=== PATIENT | male | born 1960 | race Caucasian/White ===

== ENCOUNTER → 2016-06-28 | Outpatient (CLI) | payer OTHER ==
[2016-06-28 12:59] VITALS: BP 123/70; PULSE 65; RESP 18; TEMP 98.1
--- NOTE | 2016-06-29 06:21 | P.PN ---
Subjective This is follow-up visit for this patient with a history of severe and chronic low back pain , being diagnosed with lumbar radiculopathy, lumbar herniated disc disease, and lumbar foraminal stenosis, he is not candidate for interventional pain management injection, because he had pulmonary embolism, and is currently on blood thinner ELIQUES , he denies any fever or night sweats. Denies any change in bowel movement or urination, and is currently on pain medications 1-MS Contin 15 mg every 12 hours 2- Neurontin 400 mg 3 times a day Patient denies any side effects of the medication, denies excessive drowsiness or sleepiness, denies suicidal ideation, and reports that the current pain medication is NOT helping To control the pain and improve activity of daily living Physical Examinations : 1-Constitutiona : Cooperative , not in acute distress . 2-HEENT : nech ; supple , no Lymphadenopathy , no Thyromegaly , normal thyroid size . eyes : no ptosis , no icterus, no photophobia . ENT : normal of hearing , normal oropharynx , no Thrush . 3- Respiratory : Chest clear to auscultations Bilaterally , no wheezing , no Rhonchi . 4- Cardiovascular : regular rate and rhythem , S1 , S2 , no S3 , no S4. 5- Gastrointestinal : abdomen soft no tenderness , bowel sounds positive all four quadrents , no organomegally . 6- Genitourinary : Defferred . 7- neurologic : Cranial nerve II to XII intact , no focal neurological deffecit . 8-psychatric : alert , oriented X 3 , appropriate affect , intact judgment and insight . 9-Lymphatic : no Lymphadenopathy . 10- musculoskeltal : exams of the cervical spine = motor strength normal bilateral upper extremities facet loading test cervical area positive. exams of the Lumber spine = motor strength lower extremities ,thigh and legs .5/5 deep tendon reflexes : normal Knee Jerk , normal ankle Jerk . lumber facet Loading Test positive strait leg raising test positive at 30 degree , RT ,LT , Fabere test positive RT and positive LT . Range of motion: Range of motion in flexion of the lumbar spine 60 degrees Range of motion range of motion of extension of the lumbar spine 10 Assessment and plan = Lumbar radiculopathy/lumbar herniated disc disease/lumbar foraminal stenosis Patient is not candidate for pain management interventions as his currently on blood thinner ((ELEQUES) - chronic and current use of high-risk medication (Opioids). The patient was counseled about risk of opioid use, psychological risk associated with opioids and was orally counseled to not overuse , divert,or sell dictations to take medications as prescribed only , and to restore medication in safe location , and the patient counseled against driving while using narcotic medications, and also not to use alcohol or any illicit recreational drugs, the patient's verbalized understanding that the lack of compliance will result in failure to renew narcotic prescription and possible discharge from the clinic - diagnoses, prognosis, and treatment options including but not limited to physical therapy, surgical interventions, interventional therapies , and medication management including narcotics and adjuvant medication were discussed with the patient and all The questions answered -medication management =1-increase his MS Contin to 15 mg every 8 hours (patient reported that his pain increased significantly in the middle of the day) 2-continue Neurontin 400 mg 3 times a day , and he will follow up with the pain clinic in 2 months -procedure= in the future we can consider lumbar epidural steroid injection versus transforaminal epidural steroid injection, 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
== END ==
LOC: PNWHC3 12:32
PROVIDERS: ATTEND Specialist
DX: M54.16 Radiculopathy, lumbar region (principal); M51.26 Other intervertebral disc displacement, lumbar region; M48.06 Spinal stenosis, lumbar region; Z86.711 Personal history of pulmonary embolism; Z79.01 Long term (current) use of anticoagulants; Z79.891 Long term (current) use of opiate analgesic
CPT/HCPCS: 99211

== ENCOUNTER 2016-08-12 11:07 | Inpatient (IN) | payer OTHER ==
[2016-08-12] MEDS ORDERED: MORPHINE SULFATE 4 MG/ML SYRINGE IV STA (11:56)
[2016-08-12] MEDS ORDERED: KETOROLAC 30 MG/ML 1 ML VIAL IVP STA (11:56)
[2016-08-12] MEDS ORDERED: SODIUM CHLORIDE 0.9% 1,000 ML IV STA ×2 (11:56)
--- NOTE | 2016-08-12 12:34 | ED ---
General Adult HPI - General Chief complaint: Chest Pain Stated complaint: CHEST PAIN, HX PE Time Seen by Provider: 08/12/16 11:44 Source: patient, RN notes reviewed, old records reviewed Mode of arrival: wheelchair Limitations: no limitations - History of Present Illness Initial comments: This is a 56-year-old male to the ER for reevaluation chest pain. Patient does have significant recent history of back pain and chronic history of back pain as well as recent history of bilateral PE diagnosis secondary to travel history and decreased ambulation. At this point patient states he has anterior chest pain worse when he takes a real deep breath a little epigastric pain and mild nausea no vomiting. Known but no diarrhea. No fevers. Patient states the pain feels different than the pain maneuvers a diagnosed PE - Related Data Home Medications Medication Instructions Recorded Confirmed Apixaban [Eliquis] 5 mg PO BID 04/18/16 08/12/16 Ascorbic Acid [Vitamin C] 1,000 mg PO DAILY 04/18/16 08/12/16 Multivitamin [Men's Multi-Vitamin] 1 tab PO DAILY 05/03/16 08/12/16 L.acidoph,Paracasei, B.lactis 1 cap PO DAILY 06/28/16 08/12/16 [Probiotic] Docusate [Colace] 100 mg PO BID 08/12/16 08/12/16 Morphine Sulfate ER [Ms Contin] 15 mg PO TID 08/12/16 08/12/16 Previous Rx's Medication Instructions Recorded Gabapentin [Neurontin] 400 mg PO TID #90 cap 06/28/16 Allergies Allergy/AdvReac Type Severity Reaction Status Date / Time No Known Allergies Allergy Verified 08/12/16 12:18 Review of Systems ROS Statement: Those systems with pertinent positive or pertinent negative responses have been documented in the HPI. ROS Other: All systems not noted in ROS Statement are negative. Past Medical History Past Medical History: Hearing Disorder / Deafness, Hyperlipidemia, Osteoarthritis (OA), Pulmonary Embolus (PE) History of Any Multi-Drug Resistant Organisms: None Reported Past Surgical History: Adenoidectomy, Appendectomy, Hernia Repair, Orthopedic Surgery, Tonsillectomy Additional Past Surgical History / Comment(s): Rt ruptured bicept tendon repair Past Anesthesia/Blood Transfusion Reactions: No Reported Reaction Past Psychological History: No Psychological Hx Reported Smoking Status: Never smoker Past Alcohol Use History: None Reported Past Drug Use History: None Reported - Past Family History Mother Family Medical History: Cancer Additional Family Medical History / Comment(s): ovarian ca, neuro nemanoma, mastectomy Father Family Medical History: Coronary Artery Disease (CAD), Myocardial Infarction ([place] ) General Exam Limitations: no limitations General appearance: alert, in no apparent distress Head exam: Present: atraumatic, normocephalic, normal inspection Eye exam: Present: normal appearance, PERRL, EOMI. Absent: scleral icterus, conjunctival injection, periorbital swelling ENT exam: Present: normal exam, mucous membranes moist Neck exam: Present: normal inspection. Absent: tenderness, meningismus, lymphadenopathy Respiratory exam: Present: normal lung sounds bilaterally. Absent: respiratory distress, wheezes, rales, rhonchi, stridor Cardiovascular Exam: Present: regular rate, normal rhythm, normal heart sounds. Absent: systolic murmur, diastolic murmur, rubs, gallop, clicks GI/Abdominal exam: Present: soft, normal bowel sounds. Absent: distended, tenderness, guarding, rebound, rigid Extremities exam: Present: normal inspection, full ROM, normal capillary refill. Absent: tenderness, pedal edema, joint swelling, calf tenderness Back exam: Present: normal inspection Neurological exam: Present: alert, oriented X3, CN II-XII intact Psychiatric exam: Present: normal affect, normal mood Skin exam: Present: warm, dry, intact, normal color. Absent: rash Course Vital Signs 08/12/16 08/12/16 11:27 13:16 Temperature 97.4 F L Pulse Rate 71 66 Respiratory 16 18 Rate Blood Pressure 130/90 131/83 O2 Sat by Pulse 98 99 Oximetry - Reevaluation(s) Reevaluation #1: 08/12/16 14:26 Patient's chest pain at this time is improved EKG Findings - EKG Comments: EKG Findings:: EKG shows sinus bradycardia rate 56, OH 154, QRS 90, QTC 422 Medical Decision Making - Medical Decision Making 36 meowed ER for reevaluation chest pain. Patient has anterior chest pain related to pancreatitis, history of recent PEs. Patient on anticoagulation, will admit patient for pain control IV fluid and nothing by mouth diet - Lab Data Result diagrams: 08/12/16 12:25 08/12/16 12:25 Lab Results 08/12/16 08/12/16 08/12/16 Range/Units 12:25 12:25 12:25 WBC 4.7 (3.8-10.6) k/uL RBC 5.10 (4.30-5.90) m/uL Hgb 14.7 (13.0-17.5) gm/dL Hct 46.1 (39.0-53.0) % MCV 90.2 (80.0-100.0) fL MCH 28.7 (25.0-35.0) pg MCHC 31.8 (31.0-37.0) g/dL RDW 12.3 (11.5-15.5) % Plt Count 256 (150-450) k/uL Neutrophils % 49 % Lymphocytes % 36 % Monocytes % 7 % Eosinophils % 4 % Basophils % 1 % Neutrophils # 2.3 (1.3-7.7) k/uL Lymphocytes # 1.7 (1.0-4.8) k/uL Monocytes # 0.3 (0-1.0) k/uL Eosinophils # 0.2 (0-0.7) k/uL Basophils # 0.0 (0-0.2) k/uL PT (9.0-12.0) sec INR (<1.1) APTT (22.0-30.0) sec D-Dimer (<0.60) mg/L FEU Sodium 145 (137-145) mmol/L Potassium 4.1 (3.5-5.1) mmol/L Chloride 106 (98-107) mmol/L Carbon Dioxide 27 (22-30) mmol/L Anion Gap 12 mmol/L BUN 12 (9-20) mg/dL Creatinine 0.82 (0.66-1.25) mg/dL Est GFR (MDRD) Af Amer >60 (>60 ml/min/1.73 sqM) Est GFR (MDRD) Non-Af >60 (>60 ml/min/1.73 sqM) Glucose 109 H (74-99) mg/dL Calcium 9.8 (8.4-10.2) mg/dL Magnesium 2.1 (1.6-2.3) mg/dL Total Bilirubin 0.6 (0.2-1.3) mg/dL AST 29 (17-59) U/L ALT 32 (21-72) U/L Alkaline Phosphatase 60 (38-126) U/L Total Creatine Kinase 102 (55-170) U/L CK-MB (CK-2) 1.4 (0.0-2.4) ng/mL CK-MB (CK-2) Rel Index 1.4 Troponin I <0.012 (0.000-0.034) ng/mL NT-Pro-B Natriuret Pep pg/mL Total Protein 7.7 (6.3-8.2) g/dL Albumin 4.7 (3.5-5.0) g/dL Lipase 1104 H (23-300) U/L 08/12/16 08/12/16 Range/Units 12:25 12:25 WBC (3.8-10.6) k/uL RBC (4.30-5.90) m/uL Hgb (13.0-17.5) gm/dL Hct (39.0-53.0) % MCV (80.0-100.0) fL MCH (25.0-35.0) pg MCHC (31.0-37.0) g/dL RDW (11.5-15.5) % Plt Count (150-450) k/uL Neutrophils % % Lymphocytes % % Monocytes % % Eosinophils % % Basophils % % Neutrophils # (1.3-7.7) k/uL Lymphocytes # (1.0-4.8) k/uL Monocytes # (0-1.0) k/uL Eosinophils # (0-0.7) k/uL Basophils # (0-0.2) k/uL PT 10.6 (9.0-12.0) sec INR 1.0 (<1.1) APTT 25.0 (22.0-30.0) sec D-Dimer 0.42 (<0.60) mg/L FEU Sodium (137-145) mmol/L Potassium (3.5-5.1) mmol/L Chloride (98-107) mmol/L Carbon Dioxide (22-30) mmol/L Anion Gap mmol/L BUN (9-20) mg/dL Creatinine (0.66-1.25) mg/dL Est GFR (MDRD) Af Amer (>60 ml/min/1.73 sqM) Est GFR (MDRD) Non-Af (>60 ml/min/1.73 sqM) Glucose (74-99) mg/dL Calcium (8.4-10.2) mg/dL Magnesium (1.6-2.3) mg/dL Total Bilirubin (0.2-1.3) mg/dL AST (17-59) U/L ALT (21-72) U/L Alkaline Phosphatase (38-126) U/L Total Creatine Kinase (55-170) U/L CK-MB (CK-2) (0.0-2.4) ng/mL CK-MB (CK-2) Rel Index Troponin I (0.000-0.034) ng/mL NT-Pro-B Natriuret Pep 60 pg/mL Total Protein (6.3-8.2) g/dL Albumin (3.5-5.0) g/dL Lipase (23-300) U/L - Radiology Data Radiology results: report reviewed (CK chest is no change from prior), image reviewed Disposition Clinical Impression: Chest pain, Acute pancreatitis Disposition: ADMITTED IP TO THIS HOSP Condition: Fair Referrals: Tres Haynes MD [Primary Care Provider] - 1-2 days
[2016-08-12 12:40] LABS: Basophils % (A) 1 %; CH 28.6; CHCM 31.8; Eosinophils # (A) 0.2 k/uL (0-0.7); Eosinophils % (A) 4 %; HCT 46.1 % (39.0-53.0); HGB 14.7 gm/dL (13.0-17.5); Luc # (Auto) 0.15; Luc % (Auto) 3; Lymphocytes # (A) 1.7 k/uL (1.0-4.8); Lymphocytes % (A) 36 %; MCH 28.7 pg (25.0-35.0); MCHC 31.8 g/dL (31.0-37.0); MCV 90.2 fL (80.0-100.0); Mean Platelet Volume 7.1; Monocytes # (A) 0.3 k/uL (0-1.0); Monocytes % (A) 7 %; Neutrophils # (A) 2.3 k/uL (1.3-7.7); Neutrophils % (A) 49 %; RDW 12.3 % (11.5-15.5); WBC 4.7 k/uL (3.8-10.6); WBC (Perox) 4.65
[2016-08-12 13:00] LABS: ALT 32 U/L (21-72); AST 29 U/L (17-59); Alkaline Phosphatase 60 U/L (38-126); Anion Gap 12 mmol/L; Blood Urea Nitrogen 12 mg/dL (9-20); Calcium 9.8 mg/dL (8.4-10.2); Carbon Dioxide 27 mmol/L (22-30); Chloride 106 mmol/L (98-107); Glucose 109 mg/dL (74-99); Magnesium 2.1 mg/dL (1.6-2.3); Non-African American GFR(MDRD) >60 (>60 ml/min/1.73 sqM); Potassium 4.1 mmol/L (3.5-5.1); Sodium 145 mmol/L (137-145); Total Bilirubin 0.6 mg/dL (0.2-1.3); Total Protein 7.7 g/dL (6.3-8.2)
[2016-08-12 13:04] LABS: Creatine Kinase 102 U/L (55-170)
[2016-08-12] MEDS ORDERED: RX INFO: IV CONTRAST WAS GIVEN 1 EACH MISC MISCELLANE PRN (13:04)
[2016-08-12 13:14] LABS: Prothrombin Time 10.6 sec (9.0-12.0)
[2016-08-12 13:15] LABS: Creatine Kinase MB 1.4 ng/mL (0.0-2.4); Troponin I <0.012 ng/mL (0.000-0.034)
--- NOTE | 2016-08-12 14:13 | CT ---
EXAMINATION TYPE: CT angio chest DATE OF EXAM: 08/12/2016 2:05 PM COMPARISON: NONE HISTORY: Chest pain with a history of PE in March of 2014 CT DLP: 674 mGycm Automated exposure control for dose reduction was used. CONTRAST: CTA scan of the thorax is performed with IV Contrast, patient injected with 100 ml mL of Omnipaque 35 0, pulmonary embolism protocol. . FINDINGS there is dependent atelectasis within the lungs. The lungs are otherwise clear. There is no significant axillary, mediastinal or hilar adenopathy. There is no evidence of an embolus. The aorta is normal in caliber without evidence of dissection. Th e heart is not enlarged. There is no pleural or pericardial fluid. Visualized portions of the upper abdomen are normal. There is mild hypertrophic spondylosis within the spine. IMPRESSION: 1. THIS EXAMINATION IS NEGATIVE FOR PULMONARY EMBOLUS. 2. MINIMAL DEGENERATIVE CHANGE WITHIN THE SPINE.
[2016-08-12] MEDS ORDERED: ONDANSETRON 4 MG/2 ML VIAL IVP STA (14:18)
[2016-08-12] MEDS ORDERED: PANTOPRAZOLE 40 MG/10 ML VIAL IVP STA (14:18)
--- NOTE | 2016-08-12 16:22 | US ---
EXAMINATION TYPE: US gallbladder DATE OF EXAM: 08/12/2016 3:58 PM COMPARISON: NONE CLINICAL HISTORY: Pain. Chest pain x 1 week. Possible pancreatitis EXAM MEASUREMENTS: Liver Length: 16.6 cm Gallbladder Wall: 0.4 cm CBD: 0.3 cm Right Kidney: 11.0 x 6.5 x 5.1 cm Pancreas: obscured by overlying bowel content Liver: appears wnl Gallbladder: no evidence of stones, GB wall upper limits of normal Evidence for sonographic Zapata's sign: no CBD: wnl Right Kidney: cystic area mid = 1.3 x 1.4 x 1.2cm The cystic lesion in the mid polar region of the right kidney does not meet the requirements of a sim ple cyst. IMPRESSION: CYSTIC LESION WITHIN THE RIGHT KIDNEY DOES NOT MEET THE REQUIREMENTS OF A SIMPLE CYST. FURTHER INVEST IGATION WITH CT OR MR WOULD BE SUGGESTED.
[2016-08-12] MEDS: MORPHINE SULFATE 4 MG/ML SYRINGE IV PRN ×2 (18:16→23:39)
[2016-08-12] MEDS: DOCUSATE 100 MG CAP PO SCH (20:29)
[2016-08-12] MEDS: APIXABAN 5 MG TAB PO SCH (20:29)
[2016-08-13] MEDS: APIXABAN 5 MG TAB PO SCH (08:16)
[2016-08-13] MEDS: MORPHINE SULFATE 4 MG/ML SYRINGE IV PRN ×2 (08:16→13:47)
[2016-08-13] MEDS: DOCUSATE 100 MG CAP PO SCH (08:16)
[2016-08-13 08:37] LABS: Basophils % (A) 1 %; CH 28.9; Eosinophils # (A) 0.2 k/uL (0-0.7); Eosinophils % (A) 5 %; HCT 39.3 % (39.0-53.0); HDW 2.22; HGB 12.5 gm/dL (13.0-17.5); Luc # (Auto) 0.11; Luc % (Auto) 3; Lymphocytes # (A) 1.5 k/uL (1.0-4.8); Lymphocytes % (A) 35 %; MCH 28.9 pg (25.0-35.0); MCHC 31.9 g/dL (31.0-37.0); MCV 90.4 fL (80.0-100.0); Mean Platelet Volume 7.9; Monocytes # (A) 0.3 k/uL (0-1.0); Monocytes % (A) 7 %; Neutrophils # (A) 2.1 k/uL (1.3-7.7); Neutrophils % (A) 50 %; RBC 4.35 m/uL (4.30-5.90); RDW 12.5 % (11.5-15.5); WBC 4.3 k/uL (3.8-10.6); WBC (Perox) 4.86
[2016-08-13 08:46] LABS: Anion Gap 6 mmol/L; Blood Urea Nitrogen 11 mg/dL (9-20); Carbon Dioxide 25 mmol/L (22-30); Chloride 110 mmol/L (98-107); Glucose 87 mg/dL (74-99); Non-African American GFR(MDRD) >60 (>60 ml/min/1.73 sqM); Potassium 4.1 mmol/L (3.5-5.1); Sodium 141 mmol/L (137-145)
[2016-08-13] MEDS ORDERED: PANTOPRAZOLE 40 MG/10 ML VIAL IVP SCH (09:00)
[2016-08-13 15:01] VITALS: BP 120/75; PULSE 63; RESP 19; TEMP 98
[2016-08-13] MEDS ORDERED: MORPHINE SULFATE ER 15 MG TABLET PO SCH (16:00)
[2016-08-13] MEDS ORDERED: GABAPENTIN 400 MG CAP PO SCH (16:00)
--- NOTE | 2016-08-13 19:49 | HP ---
DATE OF ADMISSION: 08/12/2016 HISTORY AND PHYSICAL/DISCHARGE SUMMARY: The patient is a 56-year-old came in with complaints of chest pain mostly in the epigastric area, constant pain 2-3/10 in severity, nonradiating, sharp in nature, not associated with shortness of breath, diaphoresis, nausea, vomiting, chest x-ray. EKG essentially within normal limits. Troponins are negative. Patient has elevated lipase because of which patient was thought to have pancreatitis. The patient was admitted. The patient pain initially used to go to the back, because of which there was reasonable suspicion of pancreatitis. The patient is not an alcoholic. Gallbladder ultrasound is negative. Patient's pancreatic enzymes are coming down. The patient wanted to go home. Patient diet will be advanced. Patient has a PE that was recently diagnosed. The patient is on Eliquis for that. Patient had a repeat CT angio of the chest here from ER which is negative for pulmonary embolism. Patient denied any fever or chills. Patient denied any cough, runny nose. No pneumonic process on the CT. ROS: All other systems were reviewed and were negative. Home medications include: 1. Apixaban. 2. Ascorbic acid. 3. Multivitamins. 4. Docusate. 5. Morphine sulfate. 6. Gabapentin. No known allergies. PAST MEDICAL HISTORY: Patient does have some hearing problems, hyperlipidemia, osteoarthritis, pulmonary embolism, recent history of pulmonary embolism, adenoidectomy, appendectomy, hysterectomy, back surgery, orthopedic surgery, back pain problems. SOCIAL HISTORY: Denied any smoking, alcohol abuse, or any drug abuse in the family. FAMILY HISTORY: Mother had cancer which is ( ) the patient also had ovarian cancer, had mastectomy in the past. Father had coronary artery disease and premature coronary artery disease. Patient's father had myocardial infarction in his 40s. PHYSICAL EXAMINATION: Temperature 98.0, pulse of 63, respiratory rate of 19, blood pressure 120/75, saturating at 95% on room air. GENERAL: The patient is alert and oriented x3, not in any acute distress. Well developed, well nourished. HEENT: Pupils are round and equally reacting to light. EOMI. No scleral icterus. No conjunctival pallor. Normocephalic, atraumatic. No pharyngeal erythema. No thyromegaly. CARDIOVASCULAR: S1 and S2 present. No murmurs, rubs, or gallops. PULMONARY: Chest is clear to auscultation, no wheezing or crackles. ABDOMEN: Soft, nontender, nondistended, normoactive bowel sounds. No palpable organomegaly. MUSCULOSKELETAL: No joint swelling or deformity. EXTREMITIES: No cyanosis, clubbing, or pedal edema. NEUROLOGICAL: Gross neurological examination did not reveal any focal deficits. SKIN: No rashes. LABORATORY DATA: CBC, CMP, essentially within normal limits. Lipase was elevated yesterday to 11,004 which has come down to 88. ASSESSMENT AND PLAN: 1. Epigastric abdominal pain I believe mostly related to gastritis but I cannot completely rule out pancreatitis. Etiology of pancreatitis is unknown. Patient is clinically doing well. We will advance diet. The patient will be discharged today. 2. Recent history of pulmonary embolism. Patient can continue his Eliquis. 3. Chronic low back pain. 4. Peripheral neuropathy for which patient is on Gabapentin. 5. Regarding his chest pain, the patient has atypical chest pain. Considering his family history, I will get a stress test as an outpatient on Monday and if patient is able to tolerate diet well and patient will be discharged on Prilosec to follow with primary care physician as an outpatient. DISCHARGE DIET: Low caffeine, low spicy food. Activity as tolerated. Follow with Dr. Tres Crawford in 3 to 7 days. This dictation is both H&P and discharge summary. [facility]
[2016-08-14] MEDS ORDERED: LACTOBACILLUS ACIDOPH & BULGAR 1 EACH PACKET PO SCH (09:00)
[2016-08-14] MEDS ORDERED: ASCORBIC ACID 500 MG TAB PO SCH (09:00)
[2016-08-14] MEDS ORDERED: MULTIVITAMINS, THERA 1 EACH TAB PO SCH (12:00)
== END 2016-08-13 18:31 | disposition home or self-care (01) | DRG 440 ==
LOC: EC 11:07 → 4MS4W 14:17
PROVIDERS: ADMIT Hospitalist; ATTEND Hospitalist
DX: K85.90 Acute pancreatitis without necrosis or infection, unspecified (principal); G62.9 Polyneuropathy, unspecified; E78.5 Hyperlipidemia, unspecified; G89.29 Other chronic pain; H91.90 Unspecified hearing loss, unspecified ear; K29.70 Gastritis, unspecified, without bleeding; Z79.01 Long term (current) use of anticoagulants; Z79.899 Other long term (current) drug therapy; Z82.49 Family history of ischemic heart disease and other diseases of the circulatory system; Z86.711 Personal history of pulmonary embolism; Z80.41 Family history of malignant neoplasm of ovary; M54.5 Low back pain; R07.89 Other chest pain
CPT/HCPCS: 36415; 71275; 76705; 80048; 80053; 82550; 82553; 83690; 83735; 83880; 84484; 85025; 85379; 85610; 85730; 93005; 96374; 96375; 96376; 99285

== ENCOUNTER 2016-08-16 06:44 | Observation (INO) | payer OTHER ==
[2016-08-16] MEDS ORDERED: NITROGLYCERIN OINT 1 INCH/GM PACKET TOPICAL STA (07:13)
[2016-08-16] MEDS ORDERED: ASPIRIN 81 MG CHEW PO STA (07:13)
[2016-08-16 07:27] LABS: Basophils # (A) 0.1 k/uL (0-0.2); Basophils % (A) 1 %; CH 28.8; CHCM 33.1; Eosinophils # (A) 0.3 k/uL (0-0.7); Eosinophils % (A) 5 %; HCT 40.3 % (39.0-53.0); HGB 13.3 gm/dL (13.0-17.5); Luc # (Auto) 0.12; Luc % (Auto) 2; Lymphocytes # (A) 2.1 k/uL (1.0-4.8); Lymphocytes % (A) 36 %; MCH 28.9 pg (25.0-35.0); MCHC 33.1 g/dL (31.0-37.0); MCV 87.4 fL (80.0-100.0); Mean Platelet Volume 7.3; Monocytes # (A) 0.4 k/uL (0-1.0); Monocytes % (A) 7 %; Neutrophils # (A) 2.8 k/uL (1.3-7.7); Neutrophils % (A) 49 %; RBC 4.61 m/uL (4.30-5.90); RDW 12.6 % (11.5-15.5); WBC 5.8 k/uL (3.8-10.6); WBC (Perox) 5.57
[2016-08-16 07:37] LABS: Partial Thromboplastin Time 23.9 sec (22.0-30.0); Prothrombin Time 10.2 sec (9.0-12.0)
[2016-08-16 07:39] LABS: ALT 33 U/L (21-72); AST 27 U/L (17-59); Alkaline Phosphatase 54 U/L (38-126); Amylase 51 U/L (30-110); Anion Gap 10 mmol/L; Blood Urea Nitrogen 11 mg/dL (9-20); Calcium 9.3 mg/dL (8.4-10.2); Carbon Dioxide 29 mmol/L (22-30); Chloride 105 mmol/L (98-107); Glucose 96 mg/dL (74-99); Magnesium 2.1 mg/dL (1.6-2.3); Non-African American GFR(MDRD) >60 (>60 ml/min/1.73 sqM); Sodium 144 mmol/L (137-145); Total Bilirubin 0.4 mg/dL (0.2-1.3); Total Protein 6.9 g/dL (6.3-8.2)
[2016-08-16 07:49] LABS: Creatine Kinase 111 U/L (55-170)
[2016-08-16 08:01] LABS: Creatine Kinase MB 1.6 ng/mL (0.0-2.4); Troponin I <0.012 ng/mL (0.000-0.034)
--- NOTE | 2016-08-16 08:05 | XR ---
EXAMINATION TYPE: XR chest 2V DATE OF EXAM: 08/16/2016 7:41 AM COMPARISON: 04/27/2016 INDICATION: Chest pain TECHNIQUE: Single frontal view of the chest is obtained. FINDINGS: The heart size is normal. The pulmonary vasculature is normal. No main pulmonary artery distention is identified. The lungs are clear. Costophrenic angles on the frontal and lateral projections are out of the [id number]. IMPRESSION: 1. No acute pulmonary process.
[2016-08-16] MEDS ORDERED: NITROGLYCERIN SL TABS 0.4 MG TAB SUBLINGUAL PRN (10:32)
--- NOTE | 2016-08-16 10:32 | ED ---
Chest Pain HPI - General Chief Complaint: Chest Pain Stated Complaint: Chest Pain Time Seen by Provider: 08/16/16 07:12 Source: patient Mode of arrival: wheelchair Limitations: no limitations - History of Present Illness Initial Comments: This 56-year-old white male presents with a complaint of some mid to lower sternal chest pain. This is described as a stabbing type of pain without radiation. He apparently was diaphoretic. He relates that it occurred when waking at 6:08 AM. He states that he was just discharged from the hospital 3 days ago. He apparently had elevation of his pancreatic enzymes. They thought he apparently had either pancreatitis versus gastritis. He is having chest pain at that time. The patient is scheduled for a stress test on for 2016. He denies ever having a previous stress test. He does have a history of pulmonary embolism and is on Alquist. He apparently was diagnosed in March 2016. He just had a CT angiogram of the chest on 08/12/2016 which is negative for any pulmonary embolism. He had a negative d-dimer at that time as well. He has chronic pain throughout his body but denies any change in his chronic leg pain. He denies any leg swelling. He denies any shortness of breath. He denies any known cardiac disease but his father apparently of a myocardial infarction in his 40s. No other complaints or modifying factors. - Related Data Home Medications Medication Instructions Recorded Confirmed Apixaban [Eliquis] 5 mg PO BID 04/18/16 08/16/16 Ascorbic Acid [Vitamin C] 1,000 mg PO DAILY 04/18/16 08/16/16 Multivitamin [Men's Multi-Vitamin] 1 tab PO DAILY 05/03/16 08/16/16 L.acidoph,Paracasei, B.lactis 1 cap PO DAILY 06/28/16 08/16/16 [Probiotic] Docusate [Colace] 100 mg PO BID 08/12/16 08/16/16 Morphine Sulfate ER [Ms Contin] 15 mg PO TID 08/12/16 08/16/16 Previous Rx's Medication Instructions Recorded Gabapentin [Neurontin] 400 mg PO TID #90 cap 06/28/16 Omeprazole [PriLOSEC] 40 mg PO WILBUR-MARIA ANTONIA #14 capsule. 08/13/16 Allergies Allergy/AdvReac Type Severity Reaction Status Date / Time No Known Allergies Allergy Verified 08/16/16 08:31 Review of Systems ROS Statement: Those systems with pertinent positive or pertinent negative responses have been documented in the HPI. ROS Other: All systems not noted in ROS Statement are negative. Past Medical History Past Medical History: Hearing Disorder / Deafness, Hyperlipidemia, Osteoarthritis (OA), Pulmonary Embolus (PE) History of Any Multi-Drug Resistant Organisms: None Reported Past Surgical History: Adenoidectomy, Appendectomy, Hernia Repair, Orthopedic Surgery, Tonsillectomy Additional Past Surgical History / Comment(s): Rt ruptured bicept tendon repair Past Anesthesia/Blood Transfusion Reactions: No Reported Reaction Past Psychological History: No Psychological Hx Reported Smoking Status: Never smoker Past Alcohol Use History: None Reported Past Drug Use History: None Reported - Past Family History Mother Family Medical History: Cancer Additional Family Medical History / Comment(s): ovarian ca, neuro nemanoma, mastectomy Father Family Medical History: Cancer, Coronary Artery Disease (CAD), Dementia, Hypertension, Myocardial Infarction ([place]), Osteoarthritis ([place]) Additional Family Medical History / Comment(s): Cancer- mother had ovarian, breast, and melanoma, and dementia. father- HTN, stroke. General Exam - General Exam Comments Initial Comments: GENERAL: The patient is well nourished and well hydrated. VITAL SIGNS: Heart rate, blood pressure, respiratory rate reviewed as recorded in nurse's notes. EYES: Pupils are round and reactive. Extraocular movements are intact. No conjunctival / lid redness or swelling. ENT: No external evidence of injury, swelling, or ecchymosis. Airway is patent. Throat is clear. NECK: Nontender. No swelling or evidence of injury. No subcutaneous emphysema. Trachea is midline. No thyroid mass. HEART: Regular rate and rhythm. Good peripheral pulses. LUNGS/CHEST: Breath sounds clear and equal bilaterally. No rales, rhonchi, or wheezes. No ecchymosis, subcutaneous emphysema, or tenderness. ABDOMEN: Abdomen soft without tenderness. No palpable masses or organomegaly. No peritoneal signs. No abdominal wall swelling or ecchymosis. EXTREMITIES: No extremity tenderness. Normal muscle tone and function. No thoracolumbar tenderness. NEUROLOGIC: Sensation is grossly intact. Cranial nerve exam reveals face is symmetrical, tongue is midline, speech is clear. SKIN: No abrasions or ecchymosis is noted. No induration or masses noted. PSYCHIATRIC: Alert and oriented. Appropriate behavior and judgment. Limitations: no limitations Course Vital Signs 08/16/16 08/16/16 08/16/16 06:47 07:19 08:00 Temperature 97.6 F Pulse Rate 70 62 54 L Respiratory 20 16 Rate Blood Pressure 137/85 121/71 116/68 O2 Sat by Pulse 100 98 97 Oximetry 08/16/16 09:00 Temperature Pulse Rate 70 Respiratory 16 Rate Blood Pressure 99/57 O2 Sat by Pulse 96 Oximetry Chest Pain MDM - MDM The patient was seen and examined. All diagnostics were reviewed. The patient had an EKG done which shows a normal sinus rhythm at a rate of 68. There is no acute ST-T wave changes identified. The ND interval is 150, castration is 90, and QTc interval is 429. The patient's x-ray did not show any acute abnormality. Chest pain protocol labs are all essentially within normal limits. Is feeling much improved with aspirin and Nitropaste. The possibility acute coronary syndrome certainly is possible. Case is discussed with internal medicine and they're agreeable to admission. Disposition Clinical Impression: Unstable angina pectoris, Chest pain Disposition: ADMITTED IP TO THIS HOSP Condition: Fair Time of Disposition: 10:32
[2016-08-16] MEDS ORDERED: NITROGLYCERIN OINT 1 INCH/GM PACKET TOPICAL SCH (12:00)
--- NOTE | 2016-08-16 12:44 | ECHOF ---
Referral Reason:cp MEASUREMENTS -------- HEIGHT: 185.4 cm WEIGHT: 93.0 kg BP: 99/57 RVIDd: 3.6 cm (< 3.3) IVSd: 1.0 cm (0.6 - 1.1) LVIDd: 4.5 cm (3.9 - 5.3) LVPWd: 1.0 cm (0.6 - 1.1) IVSs: 1.8 cm LVIDs: 2.7 cm LVPWs: 1.4 cm LA Diam: 3.2 cm (2.7 - 3.8) LAESV Index (A-L): 20.19 ml/m Ao Diam: 3.2 cm (2.0 - 3.7) AV Cusp: 2.6 cm (1.5 - 2.6) LA Diam: 2.8 cm (2.7 - 3.8) MV EXCURSION: 12.495 mm (> 18.000) MV EF SLOPE: 64 mm/s (70 - 150) EPSS: 0.3 cm MV E Dalton: 0.77 m/s MV DecT: 278 ms MV A Dalton: 0.62 m/s MV E/A Ratio: 1.25 RAP: 5.00 mmHg RVSP: 34.02 mmHg FINDINGS -------- Resting bradycardia (HR<60bpm). This was a technically good study. There is borderline concentric left ventricular hypertrophy. Overall left ventricular systolic function is normal with, an EF between 55 - 60 %. The right ventricle is mildly enlarged. Normal LA size by volume 22+/-6 ml/m2. The right atrium is normal in size. Aortic valve is trileaflet and is mildly thickened. The mitral valve leaflets are mildly thickened. Mild mitral annular calcification present. There is trace mitral regurgitation. Trace tricuspid regurgitation present. Right ventricular systolic pressure is normal at < 35 mmHg. There is no pulmonic regurgitation present. The aortic root size is normal. Normal inferior vena cava with normal inspiratory collapse consistent with estimated right atrial pressure of 5 mmHg. There is no pericardial effusion. CONCLUSIONS -------- 1. Resting bradycardia (HR<60bpm). 2. Mild mitral annular calcification present. 3. There is trace mitral regurgitation. 4. Trace tricuspid regurgitation present. 5. Right ventricular systolic pressure is normal at < 35 mmHg. 6. There is no pulmonic regurgitation present. 7. The aortic root size is normal. 8. Normal inferior vena cava with normal inspiratory collapse consistent with estimated right atrial pressure of 5 mmHg. 9. There is no pericardial effusion. 10. This was a technically good study. 11. There is borderline concentric left ventricular hypertrophy. 12. Overall left ventricular systolic function is normal with, an EF between 55 - 60 %. 13. The right ventricle is mildly enlarged. 14. Normal LA size by volume 22+/-6 ml/m2. 15. The right atrium is normal in size. 16. Aortic valve is trileaflet and is mildly thickened. 17. The mitral valve leaflets are mildly thickened. BOOK CUTTER: Rony Gant RDCS
[2016-08-16 14:21] LABS: Creatine Kinase 95 U/L (55-170)
[2016-08-16 14:34] LABS: Creatine Kinase MB 1.2 ng/mL (0.0-2.4); Troponin I <0.012 ng/mL (0.000-0.034)
[2016-08-16] MEDS: MORPHINE SULFATE ER 15 MG TABLET PO SCH ×2 (16:07→21:05)
[2016-08-16] MEDS: GABAPENTIN 400 MG CAP PO SCH ×2 (16:08→21:05)
--- NOTE | 2016-08-16 18:42 | CONS ---
Mr. Nicolas is a 56-year-old male with no prior documented history of coronary artery disease, who presented to the emergency room with symptoms of chest discomfort today while getting his dog out. He had sharp discomfort associated with diaphoresis. The discomfort lasted 3 to 4 minutes and subsequently resolved on the way to the hospital. He had a brief episode for about a minute, Patient has been complaining of some discomfort on and off for a few weeks of unclear etiology. He was recently admitted to the hospital with abdominal discomfort and initially was thought to have pancreatitis and subsequently gastritis. He has been quite active physically up to recently, when he injured his back, but prior to that, he was active without limitation. He continues to be relatively active. He denies any exertional chest pain or exertional dyspnea. He has no dizziness. No palpitation. No syncope. No PND, orthopnea, or peripheral edema. His coronary risk factors are negative for hypertension, hyperlipidemia and diabetes. He is a nonsmoker, but he has a family history of premature coronary artery disease in his father. He was diagnosed with pulmonary embolism recently and has been maintained on Eliquis 5 mg twice a day. In addition to that, he is on vitamin C, Neurontin, MS Contin for back pain and Prilosec. REVIEW OF SYSTEMS: RESPIRATORY: He has no recent wheezing. No cough. No history of documented obstructive lung disease. GI: No recent GI bleeding. No peptic ulcer disease. : No dysuria or hematuria. NERVOUS: No stroke or seizure. PHYSICAL EXAMINATION: He is a 56-year-old male; alert, oriented, in no apparent distress. Blood pressure 103/60 with a heart in the 60s. HEAD: Normocephalic. EYES: Sclerae anicteric. NECK: Good carotid upstroke. No bruits. No jugular venous distention. LUNGS: Clear to auscultation. HEART: Regular rate and rhythm. S1, S2, no S3, with systolic murmur at the base, ejection type, early peaking. No diastolic murmur. No rub. ABDOMEN: Soft, nontender. Positive bowel sounds. No organomegaly. EXTREMITIES: No edema. Intact distal pulses. Lab data revealed BUN and creatinine of 11 and 0.8. Potassium 4.0. Troponin less than 0.012. Hemoglobin of 13.3. EKG revealed sinus mechanism, normal axis and intervals, no acute changes. Chest x-ray shows no acute infiltrate. Echocardiogram revealed a preserved left ventricular size and systolic function with trace mitral and tricuspid regurgitation. IMPRESSION: 1. Symptoms of chest discomfort of unclear etiology. No evidence of myocardial infarction on the initial blood test. 2. History of back discomfort. 3. History of pulmonary embolism, anticoagulated. RECOMMENDATIONS: From the cardiac standpoint, I will obtain the rest of his cardiac enzymes. If they are negative, will proceed with dobutamine stress echocardiogram. If there is no evidence of inducible ischemia, then no further cardiac workup will be needed. Thank you for this consult. Will follow with you.
[2016-08-16 18:59] LABS: Creatine Kinase 81 U/L (55-170)
[2016-08-16 19:10] LABS: Creatine Kinase MB 0.8 ng/mL (0.0-2.4); Troponin I <0.012 ng/mL (0.000-0.034)
[2016-08-16 20:18] VITALS: RESP 16
[2016-08-16] MEDS: APIXABAN 5 MG TAB PO SCH (21:05)
[2016-08-16] MEDS: DOCUSATE 100 MG CAP PO SCH (21:05)
[2016-08-17] MEDS ORDERED: DOBUTamine DRIP for NUC MED 500 MG in DEXTROSE/WATER 1 250ML.BAG IV ONE (05:00)
[2016-08-17] MEDS ORDERED: PANTOPRAZOLE 40 MG TABLET PO SCH (07:30)
--- NOTE | 2016-08-17 07:38 | HP ---
DATE OF ADMISSION: 08/16/2016 CHIEF COMPLAINT: Chest pain. HISTORY OF PRESENT ILLNESS: This is a 56-year-old gentleman who was recently admitted to the hospital with complaints of chest pain. The patient was previously seen in our service after having a pulmonary embolism in March and was started on Eliquis at this time, thereafter had some degenerative disc disease. Patient initially was then evaluated in the emergency room with some chest pain, which was atypical in nature. Apparently there was some isolated elevation of lipase that was initially thought to be pancreatitis. Thereafter was admitted for ruling out acute coronary syndrome. Patient also underwent a CT angiogram at that time, it was negative. Patient was then discharged home to undergo outpatient stress test. Patient comes back in to the hospital, as patient had significant chest pain, which was midsternal in location, lasted about 5 to 6 minute, has been having intermittent episodes of ( ) source of pain; however, patient states that the intensity of his pain was significantly worse, radiated to the back was associated with deep breathing, difficulty in the deep breathing, any movement of bilateral shoulders or bending forward. EKG did not reveal any ST-T wave changes. Cardiac enzymes x3 were negative. Patient at the time of my evaluation denies having any chest pain or difficulty breathing, nausea, vomiting, diarrhea. REVIEW OF SYSTEMS: Fourteen-point review of systems was done; none pertinent other than was mentioned above. Home medications include: 1. Apixaban. 2. Ascorbic acid. 3. Multivitamins. 4. Docusate. 5. Morphine sulfate. 6. Gabapentin. Doses were appropriately reconciled and reviewed. No known drug allergies reported. PAST MEDICAL HISTORY: Includes: Pulmonary embolism, dyslipidemia, osteoarthritis, and degenerative disc disease, history of orthopedic surgery, chronic back pain. PAST SURGICAL HISTORY: Includes adenoidectomy and appendectomy and back surgery in the past. SOCIAL HISTORY: Denies use of tobacco, alcohol or any other illicit drugs. FAMILY HISTORY: Denies any history of cancers. However, patient's father apparently had premature heart disease before the age of 55%. PHYSICAL EXAMINATION: VITALS: Temperature 98, heart rate 68, respiratory rate 16, blood pressure 98/64. Saturating 96% on room air. GENERALLY: Patient appears to be alert, oriented x3. HEENT: The pupils are equal and reactive to light and accommodation. HEART: S1, S2 present. No murmur appreciated. LUNGS: Good air entry. No wheezing or rhonchi noted. ABDOMINAL EXAM: Soft, nontender, no organomegaly appreciated. GENITOURINARY: No Carver in place. EXTREMITIES: Pulses can be palpated distally. Denies any tenderness on gross palpation. SKIN: On a gross skin exam does not appear to have any purpura or any skin rashes that were noted. NEUROLOGICALLY: Grossly cranial nerves 2-12 intact. No motor or sensory deficits noted. Laboratory data include hemoglobin 13.3, hematocrit 40, white count is 5.8, platelets of 236. Sodium 144, potassium 4, chloride 105, bicarb 29, BUN 11, creatinine 0.84. Cardiac enzymes x3 were negative. Lipase is 121. Echocardiogram today did not reveal any wall motion abnormalities. Ejection fraction was within a 55 to 60%. RVSP was within normal limits. ASSESSMENT: 1. Atypical chest pain rule out cardiogenic etiology pain. 2. Pulmonary embolism within the last 6 months. 3. Degenerative disc disease. 4. Chronic back pain. Currently maintained on opiates. 5. Osteoarthritis. 6. Dyslipidemia. PLAN: Patient's echo was reviewed. I did discuss with the patient with recent angiogram being negative, if patient has a stress test and that appears to be negative at that time, patient is a mild to moderate risk for cardiac disease. Thereafter cardiogenic etiology can be ruled out. If stress test is negative, will likely be discharged home as patient has already been maintained on opioids for treatment of his back pain. The chest pain appears to be atypical. This was discussed with the patient. Other musculoskeletal etiologies were also described to the patient. Will follow.
[2016-08-17] MEDS ORDERED: LACTOBACILLUS ACIDOPH & BULGAR 1 EACH PACKET PO SCH (09:00)
[2016-08-17] MEDS ORDERED: ASPIRIN 81 MG CHEW PO SCH (09:00)
[2016-08-17] MEDS ORDERED: ASPIRIN 325 MG TAB PO SCH (09:00)
[2016-08-17 11:09] LABS: Cholesterol 184 mg/dL (<200); HDL Cholesterol 47 mg/dL (40-60); Triglycerides 96 mg/dL (<150)
[2016-08-17] MEDS ORDERED: MULTIVITAMINS, THERA 1 EACH TAB PO SCH (12:00)
[2016-08-17] MEDS ORDERED: ASCORBIC ACID 500 MG TAB PO SCH (12:00)
--- NOTE | 2016-08-17 12:00 | PN ---
Mr. Nicolas is comfortable, resting. Denies any chest pain at the time of my evaluation. He has a past history of pulmonary embolism and is anticoagulated. He came in with an episode of chest pain, sharp in nature with diaphoresis, lasted about 5 minutes or so. He is now pain free, resting comfortably. He is going to go for a stress test today and based on the findings of the stress test, will make further recommendations. This will probably be a dobutamine stress echocardiogram. His vital signs are stable. S1, S2 are heard normally. Lungs are clear. Abdomen and lower extremity exam is unremarkable. If stress test is abnormal, I will make further recommendations. Otherwise, patient can be discharged later on today. He is asymptomatic at the time of my evaluation.
[2016-08-17] MEDS: DOCUSATE 100 MG CAP PO SCH (12:12)
[2016-08-17] MEDS: MORPHINE SULFATE ER 15 MG TABLET PO SCH ×2 (12:13→18:03)
[2016-08-17] MEDS: GABAPENTIN 400 MG CAP PO SCH ×2 (12:13→18:03)
[2016-08-17] MEDS: APIXABAN 5 MG TAB PO SCH (12:13)
--- NOTE | 2016-08-17 12:57 | ECHOS ---
DATE OF SERVICE: 08/17/2016 AGE: 56Y SEX: M HT: 73 WT: 205 lbs. Protocol [place]: Others: Dobutamine Stress Echo Stage: Dur. of Exercise: *Heart Rate Blood Pressure *Rest: 66 Rest: 105/65 * *Max. Achieved: 140 Maximum BP: 166/61 85% PMHR: 139 100% PMHR: 164 *METS: INDICATIONS: Chest pain. MEDICATIONS: Patient was given dobutamine infusion according to the standard protocol. Peak heart rate of 140 was achieved. Maximum blood pressure 166/61 mmHg was noted. Resting EKG shows normal sinus rhythm with normal OK interval and QRS duration and normal ST-T waves. No ST segment depression suggestive of ischemia was noted. Occasional PVCs and one ventricular couplet were noted. Echocardiographic images reveal normal left ventricular chamber size with normal left ventricular systolic function. At the peak dose of dobutamine infusion, normal increase in the wall thickness and contractility is noted. FINAL IMPRESSION: This dobutamine stress echocardiographic study is negative for stress-induced ischemia. EKG portion of the stress is not suggestive of ischemia. Isolated PVCs were noted.
[2016-08-17 16:21] VITALS: BP 121/82; PULSE 63; TEMP 97.4
--- NOTE | 2016-08-18 16:44 | DS ---
DATE OF ADMISSION: 08/16/2016 DATE OF DISCHARGE: 08/17/2016 HOSPITAL COURSE: This is a 56-year-old gentleman with history of pulmonary embolism who was initially seen a day prior to the current admission for chest pain. However, pain was atypical. He was discharged home to follow up for an outpatient stress test. Patient comes back into the hospital with a similar episode of chest pressure, midsternal in location, and diaphoresis associated with it. Patient was extremely concerned and came into the hospital. Patient's pain was atypical, given that it was not very responsive to nitroglycerin, short-lasting, not associated with exertion. EKG did not reveal ST-T wave changes. Cardiac enzymes x3 were negative. Patient underwent a dobutamine stress test which did not reveal reproducible ischemia. Chest x-ray was also done which was negative. A CT angiogram was done on the prior admission 2 days prior; no PE was noted. PHYSICAL EXAM ON THE DAY OF DISCHARGE: GENERALLY: Patient appears to be alert, oriented x3. HEENT: The pupils are equal and reactive to light and accommodation. HEART: S1, S2 present. No murmur appreciated. LUNGS: Good air entry. No wheezing or rhonchi noted. ABDOMINAL EXAM: Soft, nontender, no organomegaly appreciated. GENITOURINARY: No Carver in place. EXTREMITIES: Pulses can be palpated distally. Denies any tenderness on gross palpation. SKIN: On a gross skin exam does not appear to have any purpura or any skin rashes that were noted. NEUROLOGICALLY: Grossly cranial nerves 2-12 intact. No motor or sensory deficits noted. MUSCULOSKELETAL: There is some diffuse tenderness in the lumbar spine region; however, no focal tenderness is appreciated. MEDICATIONS ON DISCHARGE: No changes were made to his medication list prior to admission. DISCHARGE DIAGNOSES: 1. Atypical chest pain. ACS was ruled out. Stress test negative. 2. History of pulmonary embolism. 3. Degenerative disc disease with disc herniation in the past. 4. Sciatica. 5. Chronic back pain, currently maintained on opiates by our pain specialist. 6. Gastroesophageal reflux disease. FOLLOWUPS: Patient is recommended to follow with Dr. Townsend and Dr. Haynes. If patient continues to have chest pain, there may be benefit in undergoing angiography. As patient is on opiates and this pain, if musculoskeletal, is not very well masked by significant doses of MS Contin. This was discussed with the patient and the family, who agreed with the above findings. Patient is discharged home in a stable condition.
== END 2016-08-17 18:07 | disposition home or self-care (01) ==
LOC: EC 06:44 → 3OBS 10:32
PROVIDERS: ADMIT Internal Medicine; ATTEND Internal Medicine
DX: R07.89 Other chest pain (principal); E78.5 Hyperlipidemia, unspecified; R61 Generalized hyperhidrosis; G89.29 Other chronic pain; M54.30 Sciatica, unspecified side; M19.90 Unspecified osteoarthritis, unspecified site; K21.9 Gastro-esophageal reflux disease without esophagitis; H91.90 Unspecified hearing loss, unspecified ear; Z86.711 Personal history of pulmonary embolism; Z82.49 Family history of ischemic heart disease and other diseases of the circulatory system; Z79.01 Long term (current) use of anticoagulants; Z79.899 Other long term (current) drug therapy; Z82.3 Family history of stroke; Z80.8 Family history of malignant neoplasm of other organs or systems; Z79.891 Long term (current) use of opiate analgesic
CPT/HCPCS: 99285; 36415; 93005; 93017; 93306; 93350; 80061; 80053; 82150; 82550; 82553; 83690; 83735; 84484; 85025; 85610; 85730; 71020; G0378 ×2; J1250

== ENCOUNTER → 2016-08-23 | Outpatient (CLI) | payer OTHER ==
[2016-08-23 12:22] VITALS: BP 129/79; PULSE 65; RESP 18
--- NOTE | 2016-08-28 13:19 | P.CONS ---
History of Present Illness - Reason for Consult Consult date: 08/23/16 - History of Present Illness This is a follow-up visit for this 56 years old male with a chronic history of severe low back pain with radiation to the right lower extremity, he was diagnosed with lumbar herniated disc disease and lumbar radiculopathy, the patient continued to have severe low back pain with radiating mostly to the right lower extremity, is currently on ELIQUIS secondary to pulmonary embolism, and recommendation was that he has to be on this medication for 12 months, patient to report that the Few weeks he will be able to hold his blood thinner medication and he can have interventional pain management, patient currently on MS Contin 15 mg twice a day, and Neurontin 400 mg every 8 hours, he denies any fever or night sweats but he denies any change in the bowel movement or urination, he denies any fever or night sweats, and patient wishe to try interventional pain management Past Medical History Past Medical History: GERD/Reflux, Hearing Disorder / Deafness, Hyperlipidemia, Osteoarthritis (OA), Pulmonary Embolus (PE) Additional Past Medical History / Comment(s): Pt recently admitted 07/23/16 with gastritis possible pancreatitis. Other hx: Bilateral PEs, [place] bilaterally- wears aides, arthritis spine and hands, chronic low back pain (needs surgery), DDD, spinal stenosis, R sciatica, neuropathy R foot and ankle, History of Any Multi-Drug Resistant Organisms: None Reported Past Surgical History: Adenoidectomy, Appendectomy, Hernia Repair, Orthopedic Surgery, Tonsillectomy Additional Past Surgical History / Comment(s): Rt ruptured bicep tendon repair, colonoscopy, R inguinal hernia repair. Past Anesthesia/Blood Transfusion Reactions: No Reported Reaction Past Psychological History: No Psychological Hx Reported Additional Psychological History / Comment(s): Pt resides with his spouse and their 30 yr old son who is total care due to hypoxic brain injury when he was 18yrs old. They do have Care Givers to assist with son's care. Pt is independent. Smoking Status: Never smoker Past Alcohol Use History: None Reported Additional Past Alcohol Use History / Comment(s): Pt states in the past he was a heavy drinker-he quit drinking in 1997. Past Drug Use History: None Reported - Past Family History Mother Family Medical History: Cancer Additional Family Medical History / Comment(s): ovarian, breast cancers and melanoma. Father Family Medical History: Cancer, Coronary Artery Disease (CAD), CVA/TIA, Hypertension, Myocardial Infarction (NH), Osteoarthritis (OA) Additional Family Medical History / Comment(s): Father of a NH at the age of 47yrs. He had a CVA when he was 33 yrs old. Medications and Allergies Home Medications Medication Instructions Recorded Confirmed Type Apixaban [Eliquis] 5 mg PO BID 04/18/16 08/23/16 History Ascorbic Acid [Vitamin C] 1,000 mg PO DAILY 04/18/16 08/23/16 History Multivitamin [Men's Multi-Vitamin] 1 tab PO DAILY 05/03/16 08/23/16 History L.acidoph,Paracasei, B.lactis 1 cap PO DAILY 06/28/16 08/23/16 History [Probiotic] Docusate [Colace] 100 mg PO BID 08/12/16 08/23/16 History Multivit-Min/FA/Lycopen/Lutein 1 tab PO DAILY 08/23/16 08/23/16 History [Centrum Silver Men Tablet] Allergies Allergy/AdvReac Type Severity Reaction Status Date / Time No Known Allergies Allergy Verified 08/23/16 12:16 Physical Exam Physical Examinations : 1-Constitutiona : Cooperative , not in acute distress . 2-HEENT : nech ; supple , no Lymphadenopathy , no Thyromegaly , normal thyroid size . eyes : no ptosis , no icterus, no photophobia . ENT : normal of hearing , normal oropharynx , no Thrush . 3- Respiratory : Chest clear to auscultations Bilaterally , no wheezing , no Rhonchi . 4- Cardiovascular : regular rate and rhythem , S1 , S2 , no S3 , no S4. 5- Gastrointestinal : abdomen soft no tenderness , bowel sounds positive all four quadrents , no organomegally . 6- Genitourinary : Defferred . 7- neurologic : Cranial nerve II to XII intact , no focal neurological deffecit . 8-psychatric : alert , oriented X 3 , appropriate affect , intact judgment and insight . 9-Lymphatic : no Lymphadenopathy . 10- musculoskeltal : exams of the cervical spine = normal motor stregnth in the deltoid and biceps, exams of the Lumber spine = normal moter stegnth lower extremities ,thigh and legs .5/5 deep tendon reflexes : normal Knee Jerk , normal ankle Jerk . positive lumber facet Loading Test strait leg raising test positive at 30 degree , RT , Fabere test positive RT . Sever tenderness over the Sacroiliac joint on the Right , Assessment and Plan Plan: Assessment and plan = -Lumbar radiculopathy, lumbar herniated disc disease -chronic and current use of high-risk medication (Opioids). The patient was counseled about risk of opioid use, psychological risk associated with opioids discussed with the patient, body mass index and exercise. Patient signed the narcotic agreement , and was orally counseled not to overuse , abuse , divert, or sell medications ,and take them as prescribed only , and the patient was counseled against driving and while you are using the narcotic medication also not to use alcohol or any illicit drugs and the patient verbalized understanding that lack of compliance and could result in failure to renew narcotics prescriptions and possible discharge from the clinic - diagnoses, prognosis, and treatment options including but not limited to physical therapy, surgical interventions, interventional therapies and medication management including narcotics and adjuvant medication were discussed with the patient and all questions answered to the patient's satisfaction. -medication refile =1-decrease MS Contin to 15 mg once a day (she wished to decrease the opioid intake, he is concerned about addiction ), and continue Neurontin 400 mg 3 times a day -procedure= scheduled patient to have lumbar epidural steroid injections under fluoroscopy guidance (after patient gets approval from his final rail cutter.to stop the ELIQUIS. Time with Patient: Less than 30
== END | disposition home or self-care (01) ==
LOC: PNWHC3 11:58
PROVIDERS: ATTEND Specialist
DX: M51.16 Intervertebral disc disorders with radiculopathy, lumbar region (principal); E78.5 Hyperlipidemia, unspecified; M19.90 Unspecified osteoarthritis, unspecified site; Z79.899 Other long term (current) drug therapy; Z86.711 Personal history of pulmonary embolism
CPT/HCPCS: 99211

== ENCOUNTER 2016-09-22 06:24 | Day surgery (SDC) | payer OTHER ==
[2016-09-21 10:54] VITALS: BMI 27.0
[~2016-09-22 06:24] MED LIST: LACTATED RINGERS 1,000 ML IV SCH
[2016-09-22 06:58] VITALS: RESP 16; TEMP 97.5
[2016-09-22] MEDS ORDERED: LIDOCAINE 1% 20 ML VIAL (10MG/ML) FOR IV START INTRADERMA ONE (07:01)
[2016-09-22] MEDS ORDERED: IOHEXOL 180 MG/ML 1 ML ML ONE (07:53)
[2016-09-22] MEDS ORDERED: MIDAZOLAM 2 MG/2 ML VIAL ONE (07:53)
[2016-09-22] MEDS ORDERED: fentaNYL (PF) 50 MCG/ML 2 ML AMP ONE (07:53)
--- NOTE | 2016-09-22 08:15 | P.PCN ---
Date of Procedure: 09/22/16 Procedure(s) Performed: PREOPERATIVE DIAGNOSIS: 1- Lumbar herniated Disc Diseases 2-Lumbar radiculopathy. POSTOPERATIVE DIAGNOSIS: same as preop diagnosis. PROCEDURE 1. Lumbar epidural steroid injection under fluoroscopic guidance at the L5-S1 level. 2. Lumbar epidurogram. ANESTHESIA: Local with 1% lidocaine 3 ml and IV sedation with Versed 2 mg , and fentanyle 50 Mcg EBL: Minimal PROCEDURE INDICATION: The patient with low back pain and radiculitis symptoms unresponsive to conservative treatment. Fluoroscopy was used to optimize visualization of the needle placement and to maximize safety. PROCEDURE DESCRIPTION / TECHNIQUE: The patient was seen and identified in the preoperative area. Risks, benefits , complications including but not limited to infections ,bleeding ,allergic reaction to the medications ,nerve damage and not complete pain releife , and alternatives were discussed with the patient. The patient agreed to proceed with the procedure and signed the consent. IV was started, and vital signs were stable. Patient was taken to the OR and time out was completed. The patient was placed in the prone position on procedure table and a pillow was placed under the abdomen to reduce lumbar lordosis. The lumbosacral area was prepped and draped in the usual sterile fashion.ere closely monitored during the procedure. Conscious sedation was used during the procedure to decrease patients anxiety. Vital signs was monitered during the entire procedure. Using anterior-posterior fluoroscopy, the L5-S1 interlaminar space was identified and the skin over this site was marked and then infiltrated with 1% lidocaine subcutaneously. Subsequently, a 20-gauge Tuohy epidural needle was inserted and advanced toward the epidural space using the ``Loss of resistance technique and guided by AP and lateral fluoroscopy. The correct needle position in the epidural space was verified with the injection of 2 mL of the water soluble contrast dye Omnipaque 180 contrast and observing an excellent epidurogram with the epidural spread of the dye, after negative aspiration for blood and CSF and in the absence of paresthesias. Again after negative aspiration, a 6 ml mixture containing 20 mg of dexamethasone and 2 ml of preservative free Normal Saline, and 2 ml of preservative free lidocaine 1% solution was injected and a washout of epidurogram was seen. Needle was withdrawn intact, skin was cleansed, and bandages were applied. COMPLICATIONS: None DISPOSITION / PLANS: The patient was placed in a supine position and transferred to the recovery area in a stable condition for observation. There was no evidence of lower extremity motor or sensory deficit after the procedure. Patient was discharged from the recovery room after meeting discharge criteria. Home discharge instructions were given to the patient by the staff. The patient was reexamined prior to discharge. The patient will schedule a follow up in the clinic in 2-4 weeks.
[2016-09-22] MEDS ORDERED: IV FLUID CONTINUATION 1,000 ML IV ONE (08:19)
--- NOTE | 2016-09-22 08:27 | FL ---
Fluoroscopy HISTORY: Pain 3 seconds fluoroscopy time supplied to the referring clinician. 1 intraoperative C-arm image documen ts the procedure. See dictated report from anesthesia.
[2016-09-22 08:38] VITALS: BP 114/75; PULSE 61
== END 2016-09-22 08:50 | disposition home or self-care (01) ==
LOC: ORPAIN 06:24
PROVIDERS: ATTEND Specialist
DX: M51.16 Intervertebral disc disorders with radiculopathy, lumbar region (principal); G89.29 Other chronic pain; M54.5 Low back pain; Z79.01 Long term (current) use of anticoagulants
CPT/HCPCS: 62323; J2250; Q9965; J3010

== ENCOUNTER 2016-10-18 09:20 | Day surgery (SDC) | payer OTHER ==
[2016-10-13 14:23] VITALS: BMI 27.0
[2016-10-18 09:40] VITALS: TEMP 98.1
[2016-10-18] MEDS ORDERED: DEXAMETHASONE SOD PHOS (MDV) 100 MG/10 ML VIAL ONE (10:15)
[2016-10-18] MEDS ORDERED: IOHEXOL 180 MG/ML 1 ML ML ONE (10:15)
--- NOTE | 2016-10-18 10:36 | P.PCN ---
Date of Procedure: 10/18/16 Preoperative Diagnosis: Postoperative Diagnosis: Procedure(s) Performed: PREOPERATIVE DIAGNOSIS: 1- Lumbar Degenerative Disc Diseases 2-Lumbar spondylosis with Facet arthropathy without myelopathy. 3-lumbar herniated disc disease POSTOPERATIVE DIAGNOSIS: 1-Lumber Degenerative Disc Diseases 2-Lumbar spondylosis with Facet arthropathy without myelopathy. 3-lumbar herniated disc disease PROCEDURE 1. Lumbar epidural steroid injection under fluoroscopic guidance at the L5-S1 level. 2. Lumbar epidurogram. ANESTHESIA: Local with 1% lidocaine 3 ml only, no IV sedation was given . EBL: Minimal PROCEDURE INDICATION: The patient with low back pain and radiculitis symptoms unresponsive to conservative treatment. Fluoroscopy was used to optimize visualization of the needle placement and to maximize safety. PROCEDURE DESCRIPTION / TECHNIQUE: The patient was seen and identified in the preoperative area. Risks, benefits , complications including but not limited to infections ,bleeding ,allergic reaction to the medications ,nerve damage and not complete pain releife , and alternatives were discussed with the patient. The patient agreed to proceed with the procedure and signed the consent. IV was started, and vital signs were stable. Patient was taken to the OR and time out was completed. The patient was placed in the prone position on procedure table and a pillow was placed under the abdomen to reduce lumbar lordosis. The lumbosacral area was prepped and draped in the usual sterile fashion.ere closely monitored during the procedure, . Vital signs was monitored during the entire procedure. Using anterior-posterior fluoroscopy, the L5-S1 interlaminar space was identified and the skin over this site was marked and then infiltrated with 1% lidocaine subcutaneously. Subsequently, a 20-gauge Tuohy epidural needle was inserted and advanced toward the epidural space using the ``Loss of resistance technique and guided by AP and lateral fluoroscopy. The correct needle position in the epidural space was verified with the injection of 2 mL of the water soluble contrast dye Omnipaque 180 contrast and observing an excellent epidurogram with the epidural spread of the dye, after negative aspiration for blood and CSF and in the absence of paresthesias. Again after negative aspiration, a 6 ml mixture containing 20 mg of Dexamethasone and 2 ml of preservative free Normal Saline, and 2 ml of preservative free lidocaine 1% solution was injected and a washout of epidurogram was seen. Needle was withdrawn intact, skin was cleansed, and bandages were applied. COMPLICATIONS: None DISPOSITION / PLANS: The patient was placed in a supine position and transferred to the recovery area in a stable condition for observation. There was no evidence of lower extremity motor or sensory deficit after the procedure. Patient was discharged from the recovery room after meeting discharge criteria. Home discharge instructions were given to the patient by the staff. The patient was reexamined prior to discharge. The patient will schedule a follow up in the clinic in 2-4 weeks. Implants: Indications for Procedure: Operative Findings: Description of Procedure:
[2016-10-18] MEDS ORDERED: IV FLUID CONTINUATION 1,000 ML IV ONE (10:37)
[2016-10-18 10:42] VITALS: RESP 18
[2016-10-18 10:56] VITALS: BP 138/90; PULSE 61
--- NOTE | 2016-10-18 11:25 | FL ---
FLUOROSCOPY 2 second of fluoroscopy time were utilized during Pain Injection. 1 images document the procedure.
== END 2016-10-18 11:13 | disposition home or self-care (01) ==
LOC: ORPAIN 09:20
PROVIDERS: ATTEND Specialist
DX: M51.16 Intervertebral disc disorders with radiculopathy, lumbar region (principal); M47.26 Other spondylosis with radiculopathy, lumbar region; M51.26 Other intervertebral disc displacement, lumbar region
CPT/HCPCS: 62323; Q9965; J1100

== ENCOUNTER → 2016-11-30 | Outpatient (CLI) | payer OTHER ==
[2016-11-30 12:48] VITALS: BP 118/74; PULSE 69; RESP 16; TEMP 97.3
--- NOTE | 2016-11-30 13:13 | P.PN ---
Progress Note - Text Patient returns for followup for chronic back pain with radiation to bilateral lower extremities. Patient recently underwent LESI x 2, second of which has given him approximately one month's relief. Patient continues on daily MSContin and Neurontin medications for pain with good relief, although he is currently only taking Neurontin at night. Patient denies adverse drug effects from medications. Today, pt denies new-onset weakness, bowel/bladder incontinence, or any other signs or symptoms of cauda equina syndrome. There are no signs of acute intoxication, and no indications of medication diversion or overuse. In addition to above, 13-point review of systems is also negative for chest pain , shortness of breath, changes in vision, changes in hearing, new onset weakness , abdominal pain, diarrhea, extreme fatigue, malaise, fever, skin changes, homicidal or suicidal ideation, or bowel or bladder incontinence. Vital Signs: Reviewed in EMR Gen: WDWN, AAOx3, NAD HEENT: NCAT, EOMI, hearing grossly normal Pulm: resp unlabored Abd: soft, NT, ND Neck: supple, trachea midline ROM in flexion lumbar spine: reduced ROM in extension lumbar spine: reduced Lumbar paravertebral tenderness: + Facet loading: + bilateral SI joint tenderness: + Ciaran's test: + bilateral Straight leg raise: neg Neuro: CN II-XII grossly intact, muscle strength lower extremities PRESERVED Imaging: Reviewed in EMR Assessment: 1. lumbar radiculopathy 2. chronic pain syndrome Plan: 1. Explanation: Opioid and psychological risk scores were reviewed. Diagnoses , prognoses, and multiple treatment options including but not limited to physical therapy, interventional therapies, adjuvant medical therapies, narcotic medication therapies, and surgery were discussed with the patient and all questions were answered to the patient's satisfaction. 2. Opioid agreement: Patient has previously signed narcotic agreement, and was orally counseled to not overuse, abuse, divert, or cell medications, and to take them as prescribed by only 1 healthcare provider. The patient was also counseled to store opioid medications in a safe and preferably locked location. Patient was also counseled against driving or operating heavy equipment while using narcotic medications and also to not use alcohol or any illicit or recreational drugs. The patient verbalized understanding that lack of compliance with any of the above and likely result in failure to renew narcotic prescriptions, possible discharge from the clinic, and possible legal ramifications thereafter if indicated. 3. Counseling: The patient was counseled extensively on BODY MASS INDEX, EXERCISE. Specifically, the patient was instructed regarding the importance of weight control, and exercise in the context of both chronic pain and overall health. 4. Procedures: LESI #3 5. Consultations: physical therapy 6. Investigations: None 7. Medications: MSContin 15 mg #60 (two months' supply), patient encouraged to use Neurontin BID or TID 8. Disposition: f/u for procedure as scheduled PQRS measures: 1-Patient's medications are documented in the chart. 2-Tobacco use is negative 3-Patient has not had a pneumococcal vaccine. 4-Advanced care planning discussed, patient unable to give. 5-Opioid contract signed with the patient. 6-Pain positive, follow-up visit or procedure scheduled 7-Patient's blood pressure measured and documented, and patient will follow up with the primary care due to hypertension. 8-Patient's weight was measured, and body mass index ABOVE the normal limits, and counseling was done. Patient instructed to follow up with PCP. 9-Patient WAS NOT identified as an unhealthy alcohol user.
== END | disposition home or self-care (01) ==
LOC: PNWHC3 12:16
PROVIDERS: ATTEND Anesthesiology
DX: M54.16 Radiculopathy, lumbar region (principal); G89.4 Chronic pain syndrome
CPT/HCPCS: 99211

== ENCOUNTER 2016-12-26 06:20 | Day surgery (SDC) | payer OTHER ==
[2016-12-21 13:50] VITALS: BMI 27.0
[2016-12-26 07:08] VITALS: RESP 16; TEMP 95.9
[2016-12-26] MEDS ORDERED: LIDOCAINE 1% 20 ML VIAL (10MG/ML) FOR IV START INTRADERMA ONE (07:12)
--- NOTE | 2016-12-26 07:57 | P.PCN ---
Date of Procedure: 12/26/16 Preoperative Diagnosis: Lumbar radiculopathy Postoperative Diagnosis: Same as above Procedure(s) Performed: Lumbar epidural steroid injection under fluoroscopic guidance in the interlaminar approach Implants: Anesthesia: other (Moderate conscious sedation with IV fentanyl and Versed) Surgeon: Debra Springer Pathology: none sent Condition: stable Disposition: PACU Indications for Procedure: Operative Findings: Description of Procedure: The patient was seen in preoperative holding area consent was obtained and was brought into the procedure room and placed in prone position. Skin was prepped with Betadine 3 and draped in a sterile manner. Lidocaine 1% was used to numb the skin up at the target point that was at the L4-5 level in the right paramedian approach. I used 20-gauge 3-1/2 inch Touhy epidural needle with loss -of-resistance to air to identify the epidural space. There was positive loss- of-resistance to air at about 7 cm from skin negative aspiration for any CSF or blood and negative paresthesia. I then injected 1 mL of Omnipaque which showed typical epidurogram with AP and lateral views of fluoroscopy and after that I injected 40 mg of Kenalog +2 MLS of Marcaine 0.25% +4 MLS of presevative free normal saline to a total volume of 7 MLS in epidural space. Patient tolerated procedure well.
[2016-12-26] MEDS ORDERED: IV FLUID CONTINUATION 1,000 ML IV ONE (08:07)
--- NOTE | 2016-12-26 08:12 | FL ---
EXAMINATION TYPE: FL guided pain mgmt statistic DATE OF EXAM: 12/26/2016 HISTORY: Pain 8 sec fl, 2 films
[2016-12-26 08:30] VITALS: BP 123/78; PULSE 64
== END 2016-12-26 08:35 | disposition home or self-care (01) ==
LOC: ORPAIN 06:20
PROVIDERS: ATTEND Anesthesiology
DX: M54.16 Radiculopathy, lumbar region (principal); Z79.899 Other long term (current) drug therapy
CPT/HCPCS: 62323; 99152; J2250; J3301; Q9965; J3010

== ENCOUNTER 2017-01-08 16:08 | Emergency (ER) | payer OTHER ==
--- NOTE | 2017-01-08 16:37 | ED ---
General Adult HPI - General Chief complaint: Back Pain/Injury Stated complaint: Back Pain Source: patient, RN notes reviewed, old records reviewed Mode of arrival: ambulatory Limitations: no limitations - History of Present Illness Initial comments: Chief complaint history of present illness this is a 56-year-old male to complaint of point specific area below his left scapula. Ongoing for 2 days. Patient reports his same pain that he had when he was diagnosed with bilateral pulmonary emboli. The patient had the diagnosis made late March of last year. He was placed on a liquids 5 mg twice a day. The patient did stop the L Oquist for 3 days over 13 days ago when he had an epidural shot. He didn't back on the L Oquist for at least 8 days. Pain increases with deep breathing. No pain with palpation no evidence of any rash or shingles. - Related Data Home Medications Medication Instructions Recorded Confirmed Apixaban [Eliquis] 5 mg PO BID 04/18/16 01/08/17 Ascorbic Acid [Vitamin C] 1,000 mg PO DAILY 04/18/16 01/08/17 L.acidoph,Paracasei, B.lactis 1 cap PO DAILY 06/28/16 01/08/17 [Probiotic] Multivit-Min/FA/Lycopen/Lutein 1 tab PO DAILY 08/23/16 01/08/17 [Centrum Silver Men Tablet] Morphine Sulfate ER [Ms Contin] 15 mg PO DAILY 12/21/16 01/08/17 Previous Rx's Medication Instructions Recorded Omeprazole [PriLOSEC] 40 mg PO AC-BRKFST #14 capsule. 08/13/16 Gabapentin [Neurontin] 400 mg PO TID #90 cap 08/23/16 Allergies Allergy/AdvReac Type Severity Reaction Status Date / Time No Known Allergies Allergy Verified 01/08/17 16:21 Review of Systems ROS Statement: Those systems with pertinent positive or pertinent negative responses have been documented in the HPI. Review of systems no visual acuity changes no headache no pain She takes a deep breath and it hurts to a spot just below his left scapula. No GI/ problems no neuro deficits all systems are reviewed. past medical problems significant for bilateral PEs approximately 9 months ago. The patient's also has a history of a hearing disorder, GERD, hyperlipidemia, osteoarthritis,. The patient surgeries tonsils, adenoids, appendectomy right inguinal hernia repair. She also had right bicep muscle repair. Family history mother had breast melanoma and ovarian cancer. Father had hypertension. Patient denies any ALLERGIES nonsmoker. Drinks alcohol rarely socially. ROS Other: All systems not noted in ROS Statement are negative. Past Medical History Past Medical History: GERD/Reflux, Hearing Disorder / Deafness, Hyperlipidemia, Osteoarthritis (OA), Pulmonary Embolus (PE) Additional Past Medical History / Comment(s): Bilateral PEs, GRAYLING bilaterally- wears aides, chronic low back pain (needs surgery), DDD, spinal stenosis, R sciatica, neuropathy R foot and ankle, History of Any Multi-Drug Resistant Organisms: None Reported Past Surgical History: Adenoidectomy, Appendectomy, Hernia Repair, Orthopedic Surgery, Tonsillectomy Additional Past Surgical History / Comment(s): Rt ruptured bicep tendon repair, colonoscopy, R inguinal hernia repair. [facility] Past Anesthesia/Blood Transfusion Reactions: No Reported Reaction Past Psychological History: No Psychological Hx Reported Smoking Status: Never smoker Past Alcohol Use History: Rare Past Drug Use History: None Reported - Past Family History Mother Family Medical History: Cancer Additional Family Medical History / Comment(s): ovarian, breast cancers and melanoma. Father Family Medical History: Cancer, Coronary Artery Disease (CAD), CVA/TIA, Hypertension, Myocardial Infarction (OR), Osteoarthritis (OA) Additional Family Medical History / Comment(s): Father of a OR at the age of 47yrs. He had a CVA when he was 33 yrs old. General Exam - General Exam Comments Initial Comments: General: The patient is awake and alert, planes of pain just below his left scapula posteriorly for the past 2 days. Increases with deep breathing. Vital signs temp 98.2 pulse 88 respiratory rate 20 pulse ox 98% room air blood pressure 142/ 88 Eye: Pupils are equal, round and reactive to light, extra-ocular movements are intact ; there is normal conjunctiva bilaterally. No signs of icterus. Ears, nose, mouth and throat: There are moist mucous membranes and no oral lesions. Neck: The neck is supple, there is no tenderness. Cardiovascular: There is a regular rate and rhythm. No murmur, rub or gallop is appreciated. Respiratory: Lungs are clear to auscultation, respirations are non-labored, breath sounds are equal. No wheezes, stridor, rales, or rhonchi. Gastrointestinal: Soft, non-distended, non-tender abdomen without masses or organomegaly noted. There is no rebound or guarding present. No CVA tenderness. Bowel sounds are unremarkable. Back: Pain to an area just low his left scapula. No rash noted early shingles discussed. No pain with palpation only with deep breathing. Musculoskeletal: Normal ROM, no tenderness, There is no pedal edema. There is no calf tenderness or swelling. Sensation intact. Pulses equal bilaterally 2+. Neurological: No complaint of any neuro deficits, no balance problems. Skin: Skin is warm and dry and no rashes or lesions are noted. Early shingles discussed. Limitations: no limitations Course Vital Signs 01/08/17 01/08/17 01/08/17 16:09 17:48 19:14 Temperature 98.2 F Pulse Rate 88 70 72 Respiratory 20 18 18 Rate Blood Pressure 142/88 115/79 126/84 O2 Sat by Pulse 98 97 97 Oximetry Medical Decision Making - Medical Decision Making Medical decision making; patient's white count 7 hemoglobin 14 hematocrit of 44. Potassium 4.6 with a BUN is 16 creatinine 0.9 the GFR greater than 60. Glucose 95. Troponin less than 0.012. Chest x-ray is done AP and lateral view and reviewed by radiologist her impression is no acute cardiopulmonary process. As read by Dr. Serrato Due to the patient's symptoms the patient will have a CT angiogram of the chest to rule out PE. CT the chest was done with IV contrast and reviewed by radiologist. Reviewed the entire report that the radiologist's dictated her final impression is no evidence of pulmonary embolus. No focal consolidation, pleural effusion or pneumothorax. No CT findings to correspond with the patient's left-sided chest pain. As dictated by Dr. Serrato And reexamination the patient was able to elicit the pain by doing a simple twist toward the right. We discussed the difference between pleuritic pain costochondritis and generalized muscular skeletal pain. Appears though the mild costochondritis. Patient is on pain medication at this time he'll be advised to follow-up with family physician. - Lab Data Result diagrams: 01/08/17 16:43 01/08/17 16:43 Lab Results 01/08/17 01/08/17 01/08/17 Range/Units 16:43 16:43 16:43 WBC 7.5 (3.8-10.6) k/uL RBC 4.91 (4.30-5.90) m/uL Hgb 14.6 (13.0-17.5) gm/dL Hct 44.0 (39.0-53.0) % MCV 89.8 (80.0-100.0) fL MCH 29.7 (25.0-35.0) pg MCHC 33.1 (31.0-37.0) g/dL RDW 12.9 (11.5-15.5) % Plt Count 263 (150-450) k/uL Neutrophils % 66 % Lymphocytes % 25 % Monocytes % 4 % Eosinophils % 2 % Basophils % 0 % Neutrophils # 5.0 (1.3-7.7) k/uL Lymphocytes # 1.9 (1.0-4.8) k/uL Monocytes # 0.3 (0-1.0) k/uL Eosinophils # 0.2 (0-0.7) k/uL Basophils # 0.0 (0-0.2) k/uL PT 10.2 (9.0-12.0) sec INR 1.0 (<1.2) D-Dimer 0.30 (<0.60) mg/L FEU Sodium 141 (137-145) mmol/L Potassium 4.6 (3.5-5.1) mmol/L Chloride 103 (98-107) mmol/L Carbon Dioxide 27 (22-30) mmol/L Anion Gap 11 mmol/L BUN 16 (9-20) mg/dL Creatinine 0.90 (0.66-1.25) mg/dL Est GFR (MDRD) Af Amer >60 (>60 ml/min/1.73 sqM) Est GFR (MDRD) Non-Af >60 (>60 ml/min/1.73 sqM) Glucose 95 (74-99) mg/dL Calcium 9.6 (8.4-10.2) mg/dL Total Bilirubin 0.4 (0.2-1.3) mg/dL AST 30 (17-59) U/L ALT 44 (21-72) U/L Alkaline Phosphatase 73 (38-126) U/L Troponin I (0.000-0.034) ng/mL Total Protein 7.5 (6.3-8.2) g/dL Albumin 4.6 (3.5-5.0) g/dL 01/08/17 Range/Units 16:43 WBC (3.8-10.6) k/uL RBC (4.30-5.90) m/uL Hgb (13.0-17.5) gm/dL Hct (39.0-53.0) % MCV (80.0-100.0) fL MCH (25.0-35.0) pg MCHC (31.0-37.0) g/dL RDW (11.5-15.5) % Plt Count (150-450) k/uL Neutrophils % % Lymphocytes % % Monocytes % % Eosinophils % % Basophils % % Neutrophils # (1.3-7.7) k/uL Lymphocytes # (1.0-4.8) k/uL Monocytes # (0-1.0) k/uL Eosinophils # (0-0.7) k/uL Basophils # (0-0.2) k/uL PT (9.0-12.0) sec INR (<1.2) D-Dimer (<0.60) mg/L FEU Sodium (137-145) mmol/L Potassium (3.5-5.1) mmol/L Chloride (98-107) mmol/L Carbon Dioxide (22-30) mmol/L Anion Gap mmol/L BUN (9-20) mg/dL Creatinine (0.66-1.25) mg/dL Est GFR (MDRD) Af Amer (>60 ml/min/1.73 sqM) Est GFR (MDRD) Non-Af (>60 ml/min/1.73 sqM) Glucose (74-99) mg/dL Calcium (8.4-10.2) mg/dL Total Bilirubin (0.2-1.3) mg/dL AST (17-59) U/L ALT (21-72) U/L Alkaline Phosphatase (38-126) U/L Troponin I <0.012 (0.000-0.034) ng/mL Total Protein (6.3-8.2) g/dL Albumin (3.5-5.0) g/dL Disposition Clinical Impression: Costochondritis, acute Disposition: HOME SELF-CARE Condition: Good Instructions: Costochondritis (ED) Referrals: Tres Haynes MD [Primary Care Provider] - 1-2 days Time of Disposition: 19:20
[2017-01-08] MEDS ORDERED: SODIUM CHLORIDE 0.9% 1,000 ML IV SCH (16:45)
--- NOTE | 2017-01-08 16:59 | XR ---
EXAMINATION TYPE: XR chest 2V DATE OF EXAM: 01/08/2017 COMPARISON: NONE HISTORY: Left posterior chest pain TECHNIQUE: Frontal and lateral views of the chest are obtained. FINDINGS: There is no focal air space opacity, pleural effusion, or pneumothorax seen. The cardiac silhouette size is within normal limits. The osseous structures are intact. IMPRESSION: No acute cardiopulmonary process.
[2017-01-08 17:01] LABS: Basophils % (A) 0 %; CH 28.9; CHCM 32.3; Eosinophils # (A) 0.2 k/uL (0-0.7); Eosinophils % (A) 2 %; HDW 2.04; HGB 14.6 gm/dL (13.0-17.5); Luc # (Auto) 0.14; Luc % (Auto) 2; Lymphocytes # (A) 1.9 k/uL (1.0-4.8); Lymphocytes % (A) 25 %; MCH 29.7 pg (25.0-35.0); MCHC 33.1 g/dL (31.0-37.0); MCV 89.8 fL (80.0-100.0); Mean Platelet Volume 7.2; Monocytes # (A) 0.3 k/uL (0-1.0); Monocytes % (A) 4 %; Neutrophils % (A) 66 %; RBC 4.91 m/uL (4.30-5.90); RDW 12.9 % (11.5-15.5); WBC 7.5 k/uL (3.8-10.6); WBC (Perox) 7.65
[2017-01-08 17:15] LABS: Prothrombin Time 10.2 sec (9.0-12.0)
[2017-01-08 17:32] LABS: ALT 44 U/L (21-72); AST 30 U/L (17-59); Alkaline Phosphatase 73 U/L (38-126); Anion Gap 11 mmol/L; Blood Urea Nitrogen 16 mg/dL (9-20); Calcium 9.6 mg/dL (8.4-10.2); Carbon Dioxide 27 mmol/L (22-30); Chloride 103 mmol/L (98-107); Glucose 95 mg/dL (74-99); Non-African American GFR(MDRD) >60 (>60 ml/min/1.73 sqM); Potassium 4.6 mmol/L (3.5-5.1); Sodium 141 mmol/L (137-145); Total Bilirubin 0.4 mg/dL (0.2-1.3); Total Protein 7.5 g/dL (6.3-8.2)
[2017-01-08 17:49] VITALS: RESP 18
[2017-01-08] MEDS ORDERED: RX INFO: IV CONTRAST WAS GIVEN 1 EACH MISC MISCELLANE PRN (17:51)
--- NOTE | 2017-01-08 19:06 | CT ---
EXAMINATION TYPE: CT angio chest DATE OF EXAM: 01/08/2017 COMPARISON: NONE HISTORY: Left sided posterior chest pain with history of PE CT DLP: 413.2 mGycm. Automated Exposure Control for Dose Reduction was Utilized. CONTRAST: CTA scan of the thorax is performed with IV Contrast, patient injected with 100 mL of Omnipaque 350, pulmonary embolism protocol. MIP Images are created on CT scanner and reviewed. FINDINGS: LUNGS: The lungs are grossly clear, there is no concerning parenchymal mass or nodule identified. T here is no pleural effusion or pneumothorax seen. The tracheobronchial tree is patent. MEDIASTINUM: There is satisfactory enhancement of the pulmonary artery and its branches, there is no CT evidence for pulmonary embolism. There are no greater than 1 cm hilar or mediastinal lymph nodes. No cardiomegaly or pericardial effusion is seen. OTHER: No additional significant abnormality is seen. Osseous structures appear intact. 1.3 cm simpl e right renal cyst is noted. IMPRESSION: No evidence of pulmonary embolus. No focal consolidation, pleural effusion or pneumothora x. No CT finding to correspond with the patient's left sided chest pain.
[2017-01-08 19:39] VITALS: BP 120/83; PULSE 65; TEMP 97.9
== END 2017-01-08 19:43 | disposition home or self-care (01) ==
LOC: EC 16:08
DX: M94.0 Chondrocostal junction syndrome [Tietze] (principal); E78.5 Hyperlipidemia, unspecified; M19.90 Unspecified osteoarthritis, unspecified site; Z86.711 Personal history of pulmonary embolism; Z79.01 Long term (current) use of anticoagulants; Z79.899 Other long term (current) drug therapy
CPT/HCPCS: 99284; 96360; 96361; 36415; 85379; 80053; 84484; 85025; 85610; 71020; 71275; Q9967

== ENCOUNTER → 2017-01-18 | Outpatient (CLI) | payer OTHER ==
[2017-01-18 13:49] VITALS: BP 131/69; PULSE 72; RESP 18
--- NOTE | 2017-01-18 14:19 | P.PN ---
Progress Note - Text This is a 56-year-old male with history of right lumbar radiculopathy that did not improve by a lumbar epidural steroid injection that was done a month ago. As a matter of fact he states that there is new numbness in the right buttock to that started about a month ago and has been constant with no changes By physical exam he does have normal muscle strength in the lower extremities bilaterally and symmetrically. He denies any bowel or bladder dysfunction. His pain is relatively well controlled with one pillow of MS Contin 15 mg in the morning and Neurontin 1-2 pills a day. Because of his neuro numbness in the right foot I will send him to have an EMG and nerve conduction test on the right lower extremity. I also told the patient that he might need to see a back surgeon for this problem however the patient said that his lower back surgeon already and they recommended surgery on his back. I will continue his MS Contin and Neurontin. We will see the patient 2 months from now.
== END | disposition home or self-care (01) ==
LOC: PNWHC3 13:17
PROVIDERS: ATTEND Anesthesiology
DX: M54.16 Radiculopathy, lumbar region (principal); Z79.899 Other long term (current) drug therapy
CPT/HCPCS: 99211

== ENCOUNTER 2017-09-11 12:17 | Emergency (ER) | payer OTHER ==
[2017-09-11 12:22] VITALS: BP 122/83; PULSE 71; RESP 18; TEMP 97.5
--- NOTE | 2017-09-11 13:13 | ED ---
General Adult HPI - General Chief complaint: Wound/Laceration Stated complaint: finger laceration Time Seen by Provider: 09/11/17 12:28 Source: patient, RN notes reviewed Mode of arrival: ambulatory Limitations: no limitations - History of Present Illness Initial comments: Patient 57-year-old male presented to the emergency room today with chief complaint of laceration to the left index finger. Patient does admit that he was using a knife to scrape off some glue with slip causes laceration. He states his tetanus is up-to-date. He states it's full range of motion. He denies any other complaints or symptoms. Patient denies any recent fever, chills , shortness of breath, chest pain, back pain, abdominal pain, headaches or visual changes, or any other complaints. - Related Data Home Medications Medication Instructions Recorded Confirmed Apixaban [Eliquis] 5 mg PO BID 04/18/16 03/07/17 Ascorbic Acid [Vitamin C] 1,000 mg PO DAILY 04/18/16 03/07/17 L.acidoph,Paracasei, B.lactis 1 cap PO DAILY 06/28/16 03/07/17 [Probiotic] Multivit-Min/FA/Lycopen/Lutein 1 tab PO DAILY 08/23/16 03/07/17 [Centrum Silver Men Tablet] Previous Rx's Medication Instructions Recorded Omeprazole [PriLOSEC] 40 mg PO AC-BRKFST #14 capsule. 08/13/16 Gabapentin [Neurontin] 400 mg PO TID #90 cap 08/23/16 Lidocaine 5% Patch [Lidoderm 5% 1 patch TOPICAL DAILY #30 patch 03/07/17 Patch] Allergies Allergy/AdvReac Type Severity Reaction Status Date / Time No Known Allergies Allergy Verified 09/11/17 12:22 Review of Systems ROS Statement: Those systems with pertinent positive or pertinent negative responses have been documented in the HPI. ROS Other: All systems not noted in ROS Statement are negative. Past Medical History Past Medical History: GERD/Reflux, Hearing Disorder / Deafness, Hyperlipidemia, Osteoarthritis (OA), Pulmonary Embolus (PE) Additional Past Medical History / Comment(s): Bilateral PEs, [place] bilaterally- wears aides, chronic low back pain (needs surgery), DDD, spinal stenosis, R sciatica, neuropathy R foot and ankle, History of Any Multi-Drug Resistant Organisms: None Reported Past Surgical History: Adenoidectomy, Appendectomy, Hernia Repair, Orthopedic Surgery, Tonsillectomy Additional Past Surgical History / Comment(s): Rt ruptured bicep tendon repair, colonoscopy, R inguinal hernia repair. [facility] Past Anesthesia/Blood Transfusion Reactions: No Reported Reaction Past Psychological History: No Psychological Hx Reported Smoking Status: Never smoker Past Alcohol Use History: Rare Past Drug Use History: None Reported - Past Family History Mother Family Medical History: Cancer Additional Family Medical History / Comment(s): ovarian, breast cancers and melanoma. Father Family Medical History: Cancer, Coronary Artery Disease (CAD), CVA/TIA, Hypertension, Myocardial Infarction ([place]), Osteoarthritis (OA) Additional Family Medical History / Comment(s): Father of a DE at the age of 47yrs. He had a CVA when he was 33 yrs old. General Exam - General Exam Comments Initial Comments: General: The patient is awake and alert, in no distress, and does not appear acutely ill. Neck: The neck is supple, there is no tenderness or JVD. Cardiovascular: There is a regular rate and rhythm. No murmur, rub or gallop is appreciated. Respiratory: Lungs are clear to auscultation, respirations are non-labored, breath sounds are equal. No wheezes, stridor, rales, or rhonchi. Musculoskeletal: Full range motion. Sensation intact. Pulses equal bilaterally 2+. Strength 5/5. Neurological: A&O x 3. CN II-XII intact, There are no obvious motor or sensory deficits. Coordination appears grossly intact. Speech is normal. Skin: 1.5 cm L-shaped laceration to the lateral aspect of the middle body of left index finger. No active bleeding. Psychiatric: Normal mood and affect. Limitations: no limitations Course Vital Signs 09/11/17 12:20 Temperature 97.5 F L Pulse Rate 71 Respiratory 18 Rate Blood Pressure 122/83 O2 Sat by Pulse 97 Oximetry Procedures - Procedures Initial comment: 1.5 cm L-shaped laceration to the left index finger.The skin was anesthetized with 1% lidocaine at the head of the metacarpal of the second digit. The laceration was then cleansed with Betadine and irrigated with normal saline. The wound was inspected, and there was no evidence of injury to deep structures. No foreign body was noted in the wound. A total of 3 skin sutures were placed utilizing 5-0 nylon. Medical Decision Making - Medical Decision Making Patient laceration close to the emergency room. His tetanus is up-to-date. Advised watch for any signs of infection. Advised to have sutures removed in 7- 10 days. Disposition Clinical Impression: Laceration Disposition: HOME SELF-CARE Condition: Good Instructions: Finger Laceration (ED) Additional Instructions: Please return to the emergency room in 7-10 days to have sutures removed. Please watch for any signs of infection which may include increased pain, swelling, redness, fever or chills. Please return to emergency room for any signs of infection do occur. Please use clean soap and water over the area to prevent scabbing over your stitches. Please leave wound covered for the first 24-48 hours and then leave wound open to air. Please return to the emergency room for any other concerns. Is patient prescribed a controlled substance at d/c from ED?: No Referrals: Tres Haynes MD [Primary Care Provider] - 1-2 days Time of Disposition: 13:14
== END 2017-09-11 13:17 | disposition home or self-care (01) ==
LOC: EC 12:17
DX: S61.211A Laceration without foreign body of left index finger without damage to nail, initial encounter (principal); H91.90 Unspecified hearing loss, unspecified ear; I26.99 Other pulmonary embolism without acute cor pulmonale; Z79.01 Long term (current) use of anticoagulants; Z79.899 Other long term (current) drug therapy; Z98.890 Other specified postprocedural states; W26.0XXA Contact with knife, initial encounter; Y93.89 Activity, other specified
CPT/HCPCS: 12001; 99282

== ENCOUNTER → 2023-04-26 | Outpatient (CLI) | payer BC ==
--- NOTE | 2023-04-26 12:06 | CA ---
Exercise Nuclear Stress Test Report Name: Partha Nicolas Exam Date: 04/26/2023 10:52 Exam Location: [place] Stress Ht (in): 72 Wt (lb): 210 BSA: 2.18 Ordering Phys: Laurie Holden MD Referring Phys: Laurie Holden MD Technologist: Mark Heard Age: 63 Gender: M : 1960 Procedure CPT: Indications: I25.10 ATHSCL HEART DISEASE OF [place] CORONARY ART ICD-10 Codes: Patient History: Medications: NONE Meds past 24 hrs: Pretest Chest Pain: STRESS TEST [place] Protocol Exercise Duration (min:sec): 09:[address] Depressions (mm): Angina Score: Allred Score: Resting HR (bpm): 66 Peak HR (bpm): 164 Resting BP (mmHg): 135 / 83 Peak BP (mmHg): 197 / 83 MPHR: 157 Target HR: 133 % MPHR: 104 METS: 11.5 Total Dose: Peak Dose: Atropine: Double Product: 09591 BP Response: Stress Termination: Reached target heart rate Stress Symptoms: No chest pain or symptoms Stress Summary: ECG ANALYSIS Resting ECG: Normal sinus rhythm, heart rate 60 bpm Stress ECG: No significant ST-T wave changes diagnostic for ischemia by ST segment analysis with peak exercise. There were no sustained arrhythmias or ectopic beats CONCLUSIONS Exercise capacity very good at >10 METS. Normal clinical and hemodynamic response to exercise Nonischemic ECG response to exercise next Overall normal ECG portion of the nuclear stress test Please refer to the nuclear portion for the complete interpretation of this study Dr Mukesh Javier (Electronically Signed) Final Date: 26 April 2023 12:05
--- NOTE | 2023-04-26 18:50 | NM ---
EXAMINATION TYPE: NM stress cardiolite complete DATE OF EXAM: 04/26/2023 COMPARISON: NONE HISTORY: Atherosclerotic heart disease TECHNIQUE: After the intravenous administration of 9.7 mCi Tc 99m Sestamibi - Cardiolite resting SPE CT images acquired 45 minutes post injection. At peak stress 24.8 mCi Tc 99m Sestamibi - Stress images obtained 5 minutes post injection The patient was stressed with 0.4mg Lexiscan. FINDINGS: No fixed defects are evident No reversible stress defects on Spect images Wall motion is normal Ejection fraction is calculated to be 70 %. IMPRESSION: 1. No acute stress-induced ischemic changes.
== END | disposition home or self-care (01) ==
LOC: RADNMMAIN 08:51
PROVIDERS: ATTEND Internal Medicine
DX: I25.10 Atherosclerotic heart disease of native coronary artery without angina pectoris (principal)
CPT/HCPCS: 93017; 78452; A9500

== ENCOUNTER 2024-07-21 09:53 | Emergency (ER) | payer BC ==
[2024-07-21] MEDS: SODIUM CHLORIDE 0.9% 1,000 ML IV ONE (10:41)
[2024-07-21] MEDS: KETOROLAC 15 MG/ML 1 ML VIAL IVP STA (10:42)
[2024-07-21] MEDS: ORPHENADRINE 30 MG/ML 2 ML VIAL IVP STA (10:42)
[2024-07-21] MEDS: methylPREDNISolone SOD SUCCI 125 MG/2 ML VIAL IV STA (10:42)
[2024-07-21] MEDS: LIDOCAINE 4% PATCH TOPICAL ONE (10:43)
--- NOTE | 2024-07-21 10:48 | CT ---
EXAMINATION TYPE: CT lumbar spine wo con DATE OF EXAM: 07/21/2024 10:34 AM COMPARISON: 04/18/2016 CLINICAL INDICATION: Male, 64 years old with history of right sided lumbar radiculopathy; PHH, Right sided lumbar radiculopathy TECHNIQUE: Unenhanced CT of the lumbar spine was performed. Bone and soft tissue window settings are submitted as well as coronal and sagittal reconstructions. CT DLP: 877.[address] CTDI: mGy Automated exposure control for dose reduction was used. FINDINGS: The lumbar vertebral segments are normal in height and alignment and there is no fracture or subluxat ion. There is mild spondylosis indicating an mild circumferential disc bulge at the L2-3, L3-4 and L4-5 le vels mild degenerative disc disease but the disc spaces are well preserved in height. There is a moderate to large herniation of the L4-5 disc with an extruded fragment. The fragment is p osterior to the L4 vertebral segment on the right severely compromising the right lateral recess and neural foramina.. Secondary to mild facet hypertrophy, thickening ligamentum flavum and circumferential disc bulge, the re is what mild spinal stenosis at the L3-4 and L4-5 levels. There is mild degeneration of the SI joints. There is mild bony neural foraminal encroachment at the L4-5 and L5-S1 levels on the right at the L5-S1 level on the left. IMPRESSION: 1. No lumbar spine fracture or malalignment. 2. Mild degenerative disc disease throughout the lumbar spine. 3. moderate to large L4-5 disc herniation with sequestered fragment compromising the lateral recess a nd neural foramina at L4-5 on the right see above. 4. Mild spinal stenosis at the L3-4 and L4-5 levels. 5. Mild bony neural foraminal encroachment at the L4-5 and L5-S1 levels as described above. [facility], , 07/21/2024 10:46 AM
[2024-07-21] MEDS: MORPHINE SULFATE 2 MG/ML SYRINGE IVP STA ×2 (11:58→13:30)
--- NOTE | 2024-07-21 13:17 | ED ---
General Adult HPI - General Chief complaint: Back Pain/Injury Stated complaint: Back pain Time Seen by Provider: 07/21/24 10:10 Source: patient, RN notes reviewed, old records reviewed Mode of arrival: ambulatory Limitations: no limitations - History of Present Illness Initial comments: 64-year-old male who presents emergency department complaining of acute on chronic low back pain. Has a history of known disc protrusions on lower spine. States that he aggravated over the last week or so and has been having pain since. Endorses shooting pain down his right buttock down into his right foot. Denies any saddle paresthesias. Denies any lower extremity paralysis. Denies any urinary bowel incontinence or retention. No new injuries to the back. Presents for further evaluation at this time. Follows up with Dr. Wong. - Related Data Home Medications Medication Instructions Recorded Confirmed Apixaban [Eliquis] 5 mg PO BID 04/18/16 03/07/17 Ascorbic Acid [Vitamin C] 1,000 mg PO DAILY 04/18/16 03/07/17 L.acidoph,Paracselinai, B.lactis 1 cap PO DAILY 06/28/16 03/07/17 [Probiotic] Mv-Min/Folic/K1/Lycopen/Lutein 1 tab PO DAILY 08/23/16 03/07/17 [Centrum Silver Men Tablet] Previous Rx's Medication Instructions Recorded Omeprazole [PriLOSEC] 40 mg PO AC-BRKFST #14 capsule. 08/13/16 Gabapentin [Neurontin] 400 mg PO TID #90 cap 08/23/16 Lidocaine 5% Patch [Lidoderm 5% 1 patch TOPICAL DAILY #30 patch 03/07/17 Patch] Cyclobenzaprine [Flexeril] 5 mg PO TID 7 Days #21 tablet 07/21/24 HYDROcodone/APAP 5-325MG [[place] 1 tab PO Q4HR PRN 3 Days #18 tab 07/21/24 5-325] Lidocaine 5% Patch [Lidoderm 5% 1 patch TOPICAL DAILY PRN 14 Days 07/21/24 Patch] #14 patch methylPREDNISolone [Medrol Dose 0 mg PO DIRECTED #1 packet 07/21/24 Pack] Allergies Allergy/AdvReac Type Severity Reaction Status Date / Time No Known Allergies Allergy Verified 07/21/24 09:58 Review of Systems ROS Statement: Those systems with pertinent positive or pertinent negative responses have been documented in the HPI. Review of Systems: CONST: Denies fever EYES: Denies blurry vision ENT: Denies nasal congestion C/V: Denies Chest pain RESP: Denies shortness of breath GI: Denies abdominal pain : Denies dysuria SKIN: Denies rash. MSK: Endorses back pain NEURO: Denies headache ROS Other: All systems not noted in ROS Statement are negative. Past Medical History Past Medical History: GERD/Reflux, Hearing Disorder / Deafness, Hyperlipidemia, Osteoarthritis (OA), Pulmonary Embolus (PE) Additional Past Medical History / Comment(s): Bilateral PEs, [place] bilaterally- wears aides, chronic low back pain (needs surgery), DDD, spinal stenosis, R sciatica, neuropathy R foot and ankle, History of Any Multi-Drug Resistant Organisms: None Reported Past Surgical History: Adenoidectomy, Appendectomy, Hernia Repair, Orthopedic Surgery, Tonsillectomy Additional Past Surgical History / Comment(s): Rt ruptured bicep tendon repair, colonoscopy, R inguinal hernia repair. [facility] Past Anesthesia/Blood Transfusion Reactions: No Reported Reaction Past Psychological History: No Psychological Hx Reported Smoking Status: Never smoker Past Alcohol Use History: Rare Past Drug Use History: None Reported - Past Family History Mother Family Medical History: Cancer Additional Family Medical History / Comment(s): ovarian, breast cancers and melanoma. Father Family Medical History: Cancer, Coronary Artery Disease (CAD), CVA/TIA, Hypertension, Myocardial Infarction ([place]), Osteoarthritis (OA) Additional Family Medical History / Comment(s): Father of a [place] at the age of 47yrs. He had a CVA when he was 33 yrs old. General Exam - General Exam Comments Initial Comments: General: Appears in mild to moderate distress secondary to back pain. HEAD: Normal with no signs of head trauma. EYES: EOMI. ENT: Hearing grossly intact. RESPIRATORY: No respiratory distress. C/V: Regular rate and rhythm. ABD: Abdomen is nondistended. EXT: No obvious deformity.. No midline tenderness palpation of the cervical, thoracic, lumbar spine. Neurovasc intact. SKIN: No rashes or lesions observed on exposed skin. NEURO: Alert and oriented. No obvious acute deficits. Able to hold both legs in full extension. Able to ambulate. Limitations: no limitations Course Vital Signs 07/21/24 07/21/2425 09:54 12:55 13:44 Temperature 97.9 F 98 F Pulse Rate 68 65 62 Respiratory 18 16 18 Rate Blood Pressure 130/80 131/81 128/78 O2 Sat by Pulse 99 96 97 Oximetry Medical Decision Making - Medical Decision Making Was pt. sent in by a medical professional or institution ([facility] Vaca, [employer] RECLAIMER, urgent care, hospital, or care home...) When possible be specific @ -No Did you speak to anyone other than the patient for history (EMS, parent, family, police, friend...)? What history was obtained from this source @ -No Did you review nursing and triage notes (agree or disagree)? Why? @ -I reviewed and agree with nursing and triage notes Were old charts reviewed (outside hosp., previous admission, EMS record, old EKG, old radiological studies, urgent care reports/EKG's, care home records)? Report findings @ -No old charts were reviewed Differential Diagnosis (chest pain, altered mental status, abdominal pain women, abdominal pain men, vaginal bleeding, weakness, fever, dyspnea, syncope, headache, dizziness, GI bleed, back pain, seizure, CVA, palpatations, mental health, musculoskeletal)? @ -Differential Back Pain: Strain, zoster, cauda equina syndrome, epidural abscess, vertebral osteomyelitis, discitis, fracture, subluxation, disc herniation, DJD, spinal stenosis, dissection, AAA, pancreatitis, peptic ulcer disease, pyelonephritis, kidney stone, this is not meant to be an all-inclusive list. EKG interpreted by me (3pts min.). @ -As above X-rays interpreted by me (1pt min.). @ -None done CT interpreted by me (1pt min.). @ -CT lumbar spine reveals no evidence of acute injury. Has known significant degeneration as well as disc herniation at the lumbar spine which are still present. This is likely the source of his radiculopathy. U/S interpreted by me (1pt. min.). @ -None done What testing was considered but not performed or refused? (CT, X-rays, U/S, labs)? Why? @ -None What meds were considered but not given or refused? Why? @ -None Did you discuss the management of the patient with other professionals (professionals i.e. BRENT Vaca, [employer] RECLAIMER, lab, RT, psych nurse, clinical social work therapist, car repairer helper, teacher, activities officer, case coordinator)? Give summary @ -No Was smoking cessation discussed for >3mins.? @ -No Was critical care preformed (if so, how long)? @ -No Were there social determinants of health that impacted care today? How? (Homelessness, low income, unemployed, alcoholism, drug addiction, transportation, low edu. Level, literacy, decrease access to med. care, detention, rehab)? @ -No Was there de-escalation of care discussed even if they declined (Discuss DNR or withdrawal of care, Hospice)? DNR status @ -No What co-morbidities impacted this encounter? (DM, HTN, Smoking, COPD, CAD, Cancer, CVA, ARF, Chemo, Hep., AIDS, mental health diagnosis, sleep apnea, morbid obesity)? @ -None Was patient admitted / discharged? Hospital course, mention meds given and route, prescriptions, significant lab abnormalities, going to OR and other pertinent info. @ -Based on the patient's presentation and physical exam, presents emergency department complaining of lower back pain. Has a history of chronic degenerative changes in the lower lumbar spine with disc herniation. States symptoms have been ongoing for the last week. Has received injections in the past without much improvement. Follows up with spine surgeon, Dr. Wong. No red flag symptoms concerning for cauda equina syndrome at this time. We will obtain CT lumbar spine and admission allergies to medications. Patient was in agreement this plan. Vital signs are within acceptable limits. CT shows significant disc herniation at L4-L5 with other chronic degenerative changes as well as suspected nerve impingement in the right sided foramina at L4-L5. This is likely the source of his radiculopathy. I discussed results with the patient. He would like to try additional analgesia medications as he is still uncomfortable. Still with no red flag symptoms. He he was in agreement this plan. On reevaluation, pain is slightly improved. Did discuss admission for possible evaluation for MRI and spine evaluation however patient declines. States he has done this previously without much change in management. He would like to try to go home. Therefore patient given IV steroids and placed on a Medrol Dosepak and addition to analgesia medications for home. Strict return precautions discussed. Recommended follow-up with a spine surgeon in the next 1 to 3 days. He was in agreement this plan. I will provide the patient with a prescription for Flexeril, Medrol Dosepak, li docaine patch, [place]. I instructed the patient to follow up with their PCP in the next 1-3 days.. I explained that the patient should return to the emergency department if they experience any worsening symptoms. Strict return precautions were discussed with the patient. The patient expressed understanding of these instructions. I answered all questions that the patient had. The patient was discharged home in fair condition with their prescriptions and follow up information. Undiagnosed new problem with uncertain prognosis? @ -No Drug Therapy requiring intensive monitoring for toxicity (Heparin, Nitro, Insulin, Cardizem)? @ -No Were any procedures done? @ -No Diagnosis/symptom? @ -Right lumbar radiculopathy, protrusion of intervertebral disc Acute, or Chronic, or Acute on Chronic? @ -Acute on chronic Uncomplicated (without systemic symptoms) or Complicated (systemic symptoms)? @ -Uncomplicated Side effects of treatment? @ -No Exacerbation, Progression, or Severe Exacerbation? @ -No Poses a threat to life or bodily function? How? (Chest pain, [place], [place], pneumonia, PE, COPD, DKA, ARF, appy, cholecystitis, CVA, Diverticulitis, Homicidal, Suicidal, threat to staff... and all critical care pts) @ -Unlikely at this time Disposition Clinical Impression: Lumbar radiculopathy, right, Protrusion of intervertebral disc Disposition: HOME SELF-CARE Condition: Fair Instructions (If sedation given, give patient instructions): Lumbar Disc Herniation (ED), Acute Low Back Pain (ED) Additional Instructions: Your CT imaging today redemonstrates significant intervertebral disc protrusion of the lumbar spine as well as right sided lumbar radiculopathy resulting in your pain. He is analgesia medications and rest at home. Please monitor for any red flag symptoms, including urinary bowel incontinence or retention, lower extremity paralysis, or paresthesias/numbness of the groin region. Follow-up with your spinal surgeon, Dr. Wong, contacting his office tomorrow. Return to the ER for any worsening symptoms or concerns. Prescriptions: Cyclobenzaprine [Flexeril] 5 mg PO TID 7 Days #21 tablet Lidocaine 5% Patch [Lidoderm 5% Patch] 1 patch TOPICAL DAILY PRN 14 Days #14 patch PRN Reason: Pain methylPREDNISolone [Medrol Dose Pack] 0 mg PO DIRECTED #1 packet HYDROcodone/APAP 5-325MG [[place] 5-325] 1 tab PO Q4HR PRN 3 Days #18 tab PRN Reason: Pain Is patient prescribed a controlled substance at d/c from ED?: Yes When asked, does pt state using other controlled substances?: No If prescribed controlled substance>3 days was MAPS reviewed?: Prescribed <3 Days If opioid is for acute pain is fill amount 7 days or less?: Yes Referrals: Laurie Holden MD [Primary Care Provider] - 1-2 days Joseph Wong DO [Doctor of Osteopathic Medicine] - 1-2 days Time of Disposition: 13:13
[2024-07-21] MEDS: ACET/COD 300 MG/30 MG STARTER PACK 6 TAB BTL PO STA (13:43)
[2024-07-21 13:45] VITALS: BP 128/78; PULSE 62; RESP 18; TEMP 98
== END 2024-07-21 13:44 | disposition home or self-care (01) ==
LOC: EC 09:53
DX: M51.16 Intervertebral disc disorders with radiculopathy, lumbar region (principal); M51.26 Other intervertebral disc displacement, lumbar region
CPT/HCPCS: 72131; 99284; 96374; 96375; 96376; 96361; J2360; J2270; J1885; J2919

== ENCOUNTER → 2024-08-02 | Outpatient (CLI) | payer BC ==
[2024-08-02 12:59] LABS: Appearance,Urine Clear (Clear); Bilirubin,Urine Negative (Negative); Blood,Urine Negative (Negative); Color,Urine Yellow; Glucose,Urine (UA) Negative (Negative); Ketones,Urine Negative (Negative); Leukocyte Esterase,Urine Negative (Negative); Nitrite,Urine Negative (Negative); PH, Urine 7.5 (5.0-8.0); Protein,Urine Negative (Negative); Specific Gravity,Urine 1.023 (1.001-1.035)
--- NOTE | 2024-08-02 13:00 | XR ---
EXAMINATION TYPE: XR chest 2V DATE OF EXAM: 08/02/2024 12:51 PM COMPARISON: 01/08/2017 CLINICAL INDICATION: Male, 64 years old with history of Z01.818 PRE OP: Shortness of breath TECHNIQUE: XR chest 2V views of the chest are obtained. FINDINGS: Scattered senescent parenchymal changes noted. Hyperinflation compatible with COPD. No evidence for infiltrate. No evidence for atelectasis. Heart size is stable. Mediastinal structures are stable and grossly unremarkable. No evidence for hilar prominence. Degenerative changes dorsal spine. IMPRESSION: 1. No evidence for acute pulmonary disease. [facility], , 08/02/2024 12:57 PM
[2024-08-02 13:23] LABS: Prothrombin Time 10.7 sec (10.0-12.5)
[2024-08-02 13:33] LABS: Partial Thromboplastin Time 21.2 sec (22.0-30.0)
[2024-08-02 14:58] LABS: Basophils # (A) 0.04 X 10*3/uL (0.00-0.10); Basophils % (A) 0.5 %; Eosinophils # (A) 0.05 X 10*3/uL (0.04-0.35); Eosinophils % (A) 0.6 %; HCT 46.7 % (39.6-50.0); HGB 14.9 g/dL (13.0-17.0); MCH 28.9 pg (27.0-32.0); MCHC 31.9 g/dL (32.0-37.0); MCV 90.5 FL (80.0-97.0); Mean Platelet Volume 10.2 FL (9.5-12.2); Monocytes # (A) 0.42 X 10*3/uL (0.20-1.00); NRBC Per 100 WBC 0 X 10*3/uL (0.00-0.01); Neutrophils # (A) 6.71 X 10*3/uL (1.80-7.70); Neutrophils % (A) 80.7 %; Platelet Count 297 X 10*3/uL (140-440); RBC 5.16 X 10*6/uL (4.40-5.60); RDW 13.1 % (11.5-14.5); WBC 8.32 X 10*3/uL (4.50-10.00)
[2024-08-02 15:11] LABS: BUN/Creat Ratio 14.56 Ratio (12.00-20.00); Blood Urea Nitrogen 13.1 mg/dL (9.0-27.0); Calcium 9.7 mg/dL (8.7-10.3); Carbon Dioxide 25.9 mmol/L (21.6-31.8); Chloride 98 mmol/L (96-109); Glucose 115 mg/dL (70-110); Sodium 135 mmol/L (135-145)
== END | disposition home or self-care (01) ==
LOC: LABWHC1 12:07
PROVIDERS: ATTEND Orthopaedic Surgery Orthopaedic Surgery of the Spine
DX: Z01.818 Encounter for other preprocedural examination (principal)
CPT/HCPCS: 36415; 71046; 80048; 81003; 85025; 85610; 85730; 93005

== ENCOUNTER 2024-08-08 07:23 | Emergency (ER) | payer BC ==
--- NOTE | 2024-08-08 07:35 | ED ---
Back Pain HPI - General Chief Complaint: Back Pain/Injury Stated Complaint: lower back pain Time Seen by Provider: 08/08/24 07:28 Source: patient, RN notes reviewed Mode of arrival: ambulatory Limitations: no limitations - History of Present Illness Initial Comments: This is a 64-year-old male who presents to the emergency department for low back pain. Patient has a history of chronic low back pain attributed to sciatica. He scheduled for surgery with Dr. Wong on 08/16. States that for the last 3 days the pain has been flaring up on him and he cannot sleep or get comfortable. He saw his PCP yesterday for surgical clearance. Currently treating pain with Morgan, however that is not effective. States that the Medrol Dosepak he was given also did not help. He has been trying Aleve and Flexeril but is unsure if those are doing anything. Denies any new injuries or loss of bowel/bladder control or saddle anesthesia. MD Complaint: back pain - Related Data Home Medications Medication Instructions Recorded Confirmed Apixaban [Eliquis] 5 mg PO BID 04/18/16 03/07/17 Ascorbic Acid [Vitamin C] 1,000 mg PO DAILY 04/18/16 03/07/17 L.acidoph,Paracasei, B.lactis 1 cap PO DAILY 06/28/16 03/07/17 [Probiotic] Mv-Min/Folic/K1/Lycopen/Lutein 1 tab PO DAILY 08/23/16 03/07/17 [Centrum Silver Men Tablet] Previous Rx's Medication Instructions Recorded Omeprazole [PriLOSEC] 40 mg PO AC-BRKFST #14 capsule. 08/13/16 Gabapentin [Neurontin] 400 mg PO TID #90 cap 08/23/16 Lidocaine 5% Patch [Lidoderm 5% 1 patch TOPICAL DAILY #30 patch 03/07/17 Patch] Cyclobenzaprine [Flexeril] 5 mg PO TID 7 Days #21 tablet 07/21/24 HYDROcodone/APAP 5-325MG [Morgan 1 tab PO Q4HR PRN 3 Days #18 tab 07/21/24 5-325] Lidocaine 5% Patch [Lidoderm 5% 1 patch TOPICAL DAILY PRN 14 Days 07/21/24 Patch] #14 patch methylPREDNISolone [Medrol Dose 0 mg PO DIRECTED #1 packet 03/09/25 Pack] Meloxicam [Mobic] 15 mg PO DAILY PRN #30 tab 08/08/24 tiZANidine [Zanaflex] 2 mg PO Q8HR PRN #30 tablet 08/08/24 Allergies Allergy/AdvReac Type Severity Reaction Status Date / Time No Known Allergies Allergy Verified 08/08/24 07:27 Review of Systems ROS Statement: Those systems with pertinent positive or pertinent negative responses have been documented in the HPI. ROS Other: All systems not noted in ROS Statement are negative. Past Medical History Past Medical History: GERD/Reflux, Hearing Disorder / Deafness, Hyperlipidemia, Osteoarthritis (OA), Pulmonary Embolus (PE) Additional Past Medical History / Comment(s): Bilateral PEs, KIANA bilaterally- wears aides, chronic low back pain (needs surgery), DDD, spinal stenosis, R sciatica, neuropathy R foot and ankle, History of Any Multi-Drug Resistant Organisms: None Reported Past Surgical History: Adenoidectomy, Appendectomy, Hernia Repair, Orthopedic Surgery, Tonsillectomy Additional Past Surgical History / Comment(s): Rt ruptured bicep tendon repair, colonoscopy, R inguinal hernia repair. [facility] Past Anesthesia/Blood Transfusion Reactions: No Reported Reaction Past Psychological History: No Psychological Hx Reported Smoking Status: Never smoker Past Alcohol Use History: Rare Past Drug Use History: None Reported - Past Family History Mother Family Medical History: Cancer Additional Family Medical History / Comment(s): ovarian, breast cancers and melanoma. Father Family Medical History: Cancer, Coronary Artery Disease (CAD), CVA/TIA, Hypertension, Myocardial Infarction (MS), Osteoarthritis (OA) Additional Family Medical History / Comment(s): Father of a MS at the age of 47yrs. He had a CVA when he was 33 yrs old. General Exam Limitations: no limitations General appearance: alert, in distress Head exam: Present: atraumatic, normocephalic, normal inspection Respiratory exam: Present: normal lung sounds bilaterally. Absent: respiratory distress, wheezes, rales, rhonchi, stridor Cardiovascular Exam: Present: regular rate, normal rhythm Neurological exam: Present: alert, oriented X3, CN II-XII intact Psychiatric exam: Present: normal affect, normal mood Skin exam: Present: warm, dry, intact, normal color. Absent: rash Course Vital Signs 08/08/24 07:24 Temperature 97.8 F Pulse Rate 79 Respiratory 17 Rate Blood Pressure 151/74 O2 Sat by Pulse 98 Oximetry Medical Decision Making - Medical Decision Making This is a 64 year old male who presents to the emergency department for back pain. Was pt. sent in by a medical professional or institution? @ -No Did you speak to anyone other than the patient for history? @ -No Did you review nursing and triage notes? @ -Yes, and I agree, it is accurate with regards to the patient's symptoms. Were old charts reviewed? @ -No Differential Diagnosis? @ -Differential Back Pain: Strain, zoster, cauda equina syndrome, epidural abscess, vertebral osteomyelitis, discitis, fracture, subluxation, disc herniation, DJD, spinal stenosis, dissection, AAA, pancreatitis, peptic ulcer disease, pyelonephritis, kidney stone, this is not meant to be an all-inclusive list. EKG interpreted by me (3pts min.)? @ -Not obtained X-rays interpreted by me (1pt min.)? @ -Not obtained CT interpreted by me (1pt min.)? @ -Not obtained U/S interpreted by me (1pt. min.)? @ -Not obtained What testing was considered but not performed? (CT, X-rays, U/S, labs)? Why? @ -None What meds were considered but not given? Why? @ -None Did you discuss the management of the patient with other professionals? @ -No Did you reconcile home meds? @ -No Was smoking cessation discussed for >3mins.? @ -No Was critical care preformed (if so, how long)? @ -No Were there social determinants of health that impacted care today? How? (Homelessness, low income, unemployed, alcoholism, drug addiction, transportation, low edu. Level, literacy, decrease access to med. care, fdc, rehab)? @ -No Was there de-escalation of care discussed even if they declined? (Discuss DNR or withdrawal of care, Hospice)? @ -No What co-morbidities impacted this encounter? (DM, HTN, Smoking, COPD, CAD, Cancer, CVA, Hep., AIDS, mental health diagnosis, sleep apnea, morbid obesity)? @ -DDD, lumbar disc herniation Was patient admitted / discharged? @ -Discharged. Patient was experiencing a flareup of his chronic pain and not getting any relief with his at home medication. He had no red flag signs or symptoms such as loss of bowel/bladder control or saddle anesthesia. Pain was treated in the emergency department. Situation was discussed with the pharmacist who is agreeable to a low-dose 12 mcg fentanyl patch. This was applied in the emergency department and patient is instructed to remove this in 72 hours. Advised he just take the Morgan for breakthrough pain. Additionally, meloxicam was prescribed to be taken in place of Aleve to see if that offers any additional benefit and Zanaflex was prescribed to be taken in place of the Flexeril, also to see if that is more effective. Advised discussing his concern with pain control with his PCP as well. Patient discharged home in stable condition. Case discussed with ED attending Dr. Johnson. Return precautions reviewed in depth, the patient is instructed to return to the emergency department with any new, worsening, or concerning symptoms. Patient verbalized understanding. Undiagnosed new problem with uncertain prognosis? @ -None Drug Therapy requiring intensive monitoring for toxicity (Heparin, Nitro, Insulin, Cardizem)? @ -None Were any procedures done? @ -None Diagnosis/symptom? @ -Chronic back pain, sciatica Acute, or Chronic, or Acute on Chronic? @ -Chronic Uncomplicated (without systemic symptoms) or Complicated (systemic symptoms)? @ -Uncomplicated Side effects of treatment? @ -None Exacerbation, Progression, or Severe Exacerbation] @ -Exacerbation Poses a threat to life or bodily function? @ -The pain is limiting his ability to function. Disposition Clinical Impression: Sciatica Disposition: HOME SELF-CARE Instructions (If sedation given, give patient instructions): Sciatica (ED), Lumbar Radiculopathy (ED) Additional Instructions: Return to the emergency department with any new, worsening, or concerning symptoms. The fentanyl patch will be removed in 72 hours. Start taking the meloxicam once daily. Do not take any other anti-inflammatories such as ibuprofen if you choose to take this. Take the Morgan for breakthrough pain with the fentanyl patch. However, be aware that the fentanyl patch can take several hours to start offering effect. You can try taking the Zanaflex in place of the Flexeril. This can be taken up to 3 times daily. If you do not find this effective initially, you can double the dosage to 2 tablets three times a day after the first couple of days. Prescriptions: Meloxicam [Mobic] 15 mg PO DAILY PRN #30 tab PRN Reason: Pain tiZANidine [Zanaflex] 2 mg PO Q8HR PRN #30 tablet PRN Reason: Pain Is patient prescribed a controlled substance at d/c from ED?: No Referrals: Laurie Holden MD [Primary Care Provider] - 1-2 days Time of Disposition: 08:33
[2024-08-08] MEDS: HYDROmorphone 1 MG/ML 1 ML SYRINGE IM STA ×2 (07:36→08:49)
[2024-08-08] MEDS: KETOROLAC 15 MG/ML 1 ML VIAL IM STA ×2 (07:40→08:48)
[2024-08-08] MEDS: dexAMETHasone 2 MG TAB PO STA (08:48)
[2024-08-08 09:00] VITALS: BP 113/73; PULSE 71; RESP 20; TEMP 98.1
== END 2024-08-08 09:10 | disposition home or self-care (01) ==
LOC: EC 07:23
DX: M54.40 Lumbago with sciatica, unspecified side (principal); M51.369 Other intervertebral disc degeneration, lumbar region without mention of lumbar back pain or lower extremity pain
CPT/HCPCS: 99283; 96372; J3360; J1171; J8540; J1885